=== PATIENT | male | born 1965 | race Caucasian/White ===

== ENCOUNTER → 2019-06-12 09:10 | Outpatient (BNVA) | payer MEDICARE, MEDICAID, SELFPAY | PROVIDERS: Family Provider Family Medicine; PCP Family Medicine; Visit Provider Internal Medicine Cardiovascular Disease | DX: E11.9 Type 2 diabetes mellitus without complications (principal) | CPT/HCPCS: 83036 ==

== ENCOUNTER → 2020-09-20 09:03 | Outpatient (BNVA) | payer MEDICARE, MEDICAID, SELFPAY | PROVIDERS: Family Provider Family Medicine; PCP Family Medicine; Visit Provider Nurse Practitioner Family | DX: E11.9 Type 2 diabetes mellitus without complications (principal); I10 Essential (primary) hypertension; Z68.25 Body mass index [BMI] 25.0-25.9, adult | CPT/HCPCS: 80053; 80061; 82043; 83036; 85025 ==

== ENCOUNTER → 2021-03-23 16:57 | Outpatient (BNVA) | payer MEDICARE, MEDICAID, SELFPAY | PROVIDERS: Family Provider Family Medicine; PCP Family Medicine; Visit Provider Nurse Practitioner Family | DX: E78.2 Mixed hyperlipidemia (principal); E11.9 Type 2 diabetes mellitus without complications; I10 Essential (primary) hypertension | CPT/HCPCS: 80053; 80061; 83036 ==

== ENCOUNTER → 2021-06-21 09:35 | Outpatient (BNVA) | payer MEDICARE, MEDICAID, SELFPAY | PROVIDERS: Family Provider Family Medicine; PCP Family Medicine; Visit Provider Nurse Practitioner Family | DX: E11.9 Type 2 diabetes mellitus without complications (principal); H91.3 Deaf nonspeaking, not elsewhere classified; I10 Essential (primary) hypertension; Z68.24 Body mass index [BMI] 24.0-24.9, adult | CPT/HCPCS: 83036 ==

== ENCOUNTER → 2021-10-03 08:44 | Outpatient (BNVA) | payer MEDICARE, MEDICAID, SELFPAY | PROVIDERS: Family Provider Family Medicine; PCP Family Medicine; Visit Provider Nurse Practitioner Family | DX: I10 Essential (primary) hypertension (principal); E11.9 Type 2 diabetes mellitus without complications | CPT/HCPCS: 80053; 80061; 83036; 84443 ==

== ENCOUNTER 2023-07-14 21:14 | Inpatient (IN) | payer MEDICARE, MEDICAID, SELFPAY ==
[2023-07-14 21:16] VITALS: BP 110/80; PULSE 111; RESP 16; TEMP 36.4; O2SAT 90
--- NOTE | 2023-07-14 21:32 | XRR_ITS ---
PROCEDURE INFORMATION: Exam: XR Chest Exam date and time: 07/14/2023 9:43 PM Age: 58 years old Clinical indication: Pain; Chest pressure; Additional info: Cp TECHNIQUE: Imaging protocol: Radiologic exam of the chest. Views: 1 view. COMPARISON: l spine FINDINGS: Lungs: No focal consolidation or other acute appearing pulmonary opacity. Pleural spaces: No pleural effusion or pneumothorax noted. Heart/Mediastinum: There is no cardiomegaly. Bones/joints: No acute osseous abnormality. Intraperitoneal space: There is no free intraperitoneal air. XR/XR chest 1V portable [id number] IMPRESSION: No acute cardiopulmonary disease.
--- NOTE | 2023-07-14 21:32 | ECG_ITS ---
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 Measurements Intervals [place] Rate: 111 P: 59 MI: 142 QRS: -78 QRSD: 117 T: 82 QT: 350 QTc: 476 Interpretive Statements SINUS TACHYCARDIA No previous ECG available for comparison Electronically Signed On 07-15-2023 13:15:46 CDT by Rich Jenkins M.D. [id number] f
[2023-07-14 21:58] LABS: Basophils # 0.1 10^3/uL (0.0-0.1); Basophils % 0.6 %; Eosinophils % 0.1 %; Hematocrit 52.1 % (37-53); Lymphocytes # 1.2 10^3/uL (0.8-4.8); Lymphocytes % 11.4 %; Mean Corpuscular HGB Conc 36.3 g/dL (30-55); Mean Corpuscular Hemoglobin 35.9 pg (27-33); Mean Corpuscular Volume 98.9 fl (82-101); Mean Platelet Volume 8.8 fL (7.4-10.4); Monocytes # 0.7 10^3/uL (0.2-0.9); Monocytes % 6.3 %; Neutrophils # 8.52 10^3/uL (1.8-7.7); Neutrophils % 81.2 %; Nucleated Red Blood Cells % 0 %; Platelet Count 264 10^3/cmm (157-399); Red Blood Count 5.27 10^6/uL (3.85-5.65); Red Cell Distribution Width 12.6 % (12.1-15.1); White Blood Count 10.49 10^3/uL (3.29-11.43)
[2023-07-14 22:15] VITALS: BP 105/81; PULSE 96; RESP 15; O2SAT 95
[2023-07-14 22:19] LABS: Troponin(5th) Baseline 62 ng/L (0-15)
[2023-07-14] MEDS: ondansetron 2 mg/ML SDV 2 mL 4 MG IVP (22:20)
[2023-07-14 22:21] VITALS: RESP 18; O2SAT 95
[2023-07-14] MEDS: morphine 4 mg/mL SDV 1 mL IVP (22:21)
[2023-07-14 22:26] LABS: Alanine Aminotransferase 48 U/L (0-41); Albumin Level 4.3 g/dL (3.5-5.2); Alcohol Level 107 mg/dL (0-10); Alkaline Phosphatase 66 U/L (40-130); Aspartate Amino Transferase 48 U/L (0-40); Blood Urea Nitrogen 11 mg/dL (6-20); Carbon Dioxide 20 mmol/L (22-29); Chloride 95 mmol/L (98-107); Creatine Phosphokinase 216 U/L (39-308); Globulin 3.5 g/dL (1.3-4.6); Glomerular Filtration Rate 86.4 mL/min (90-130); Glucose 155 mg/dL (65-115); Lipase 45 U/L (13-60); NT Pro B Type Natriuretic Pept 250 pg/mL (0-125); Osmolality Calculated 277 mOsm/kg (285-295); Sodium 132 mmol/L (136-145); Total Bilirubin 0.5 mg/dL (0.15-1.2); Total Protein 7.8 g/dL (6.6-8.7)
[2023-07-14 22:29] LABS: Anion Gap 21.1 (5-19); Potassium 4.1 mmol/L (3.5-5.1)
[2023-07-14 22:30] VITALS: BP 102/75; BP 109/80; PULSE 108; PULSE 93; RESP 18; O2SAT 93; O2SAT 94
[2023-07-14 22:41] VITALS: BP 109/80; PULSE 106; RESP 15; O2SAT 94
--- NOTE | 2023-07-14 22:50 | ED_ITS ---
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 He presents with chest discomfort. He also has COPD, and has been coughing recently, although not necessarily more. No fever. He is short of breath. Communication and history are otherwise difficult due to the patient's condition. He does not wear oxygen at home. Pain was not improved with nitroglycerin en route. Family tells me that the patient has stopped his medications in the last 6 months. He drinks 6 beers or so a day. Associated symptoms: Deny abdominal pain, fever(s), nausea, palpitations or vomiting Review of Systems 2 Const: Denies: fever(s), chills or body aches Eyes: Denies: change in vision Card: Denies: palpitations Resp: Denies: wheezing GI: Denies: abdominal pain, nausea, vomiting, diarrhea or hematochezia Skin/Breast: Denies: rash Neuro: Denies: headache(s), weakness in extremities, dizziness or confusion PFS ED 2 PFSH: Medical History (Updated 07/15/23 @ 01:14 by Emiliano Clarke DO) Carotid stenosis History of heart attack Enrolled in chronic care management COPD (chronic obstructive pulmonary disease) Peptic ulcer disease Hypertension Hyperlipidemia Atherosclerosis of [place] coronary artery of [place] heart with unstable angina pectoris Diabetes Esophageal dysfunction ASHD (arteriosclerotic heart disease) Surgical History Hx of neck surgery Social History Smoking and tobacco/nicotine status: former use of tobacco/nicotine Quit status (tobacco/nicotine): has quit using Year quit tobacco: 2014 Alcohol intake: former Physical Exam 2 Const: COMMON NORMALS: no acute distress GENERAL APPEARANCE: cooperative; not ill appearing and not frail appearing HENMT: COMMON NORMALS: normocephalic, atraumatic and Normal external nose present HEAD & SCALP: normocephalic and atraumatic FACE & SINUS: normal facial exam and face symmetric NOSE: Normal external nose present Eye: COMMON NORMALS: Equal, round and reactive pupils present and EOMs intact bilaterally PUPIL: Yes Equal, round and reactive pupils present Neck/C-Spine: GENERAL: Yes trachea midline Chest: CHEST: Yes Symmetrical chest wall rise Resp: COMMON NORMALS: normal respiratory effort, No retractions, No use of accessory muscles and clear to auscultation bilaterally AUSCULTATION: clear to auscultation bilaterally Cardio: COMMON NORMALS: regular rhythm RATE: tachycardic RHYTHM: regular rhythm GI: COMMON NORMALS: Normal to inspection, nondistended, normoactive bowel sounds present Extremity: COMMON NORMALS: no pedal edema Neuro: ANIBAL COMA SCALE: document GCS findings Anibal coma scale eye opening: Spontaneous Anibal coma scale verbal response: Orientated [place] coma scale motor response: [place] commands Anibal coma scale total score: 15 S ENSORY EXAM: Yes extremities (intact) Psych: COMMON NORMALS: speech normal SPEECH: Yes normal speech Skin: COMMON NORMALS: no rashes or lesions noted GENERAL SKIN EXAM: no rashes or lesions noted Course 2 Vital Signs: Vital signs: Vital Signs Temperature 97.5 F L 07/14/23 21:16 Pulse Rate 87 07/15/23 00:35 Respiratory Rate 15 07/14/23 22:41 Blood Pressure 123/80 07/15/23 00:35 Pulse Oximetry 95 07/15/23 00:35 Oxygen Delivery Me thod Nasal Cannula 07/15/23 00:35 Oxygen Flow Rate 2 07/15/23 00:35 MDM - Chest Pain Medical Decision Making EKG shows tachycardia without acute ST wave change. Hemoglobin is 19. Bicarbonate is 20. Blood sugar is 155 sodium 132. Chest x-ray Shows no acute change. First troponin however is 62 with a 2-hour delta of 30. No acute ST wave changes on EKG. Patient was tachycardic initially, which is improved to some degree. D-dimer is negative. He is given Lovenox here after morphine and Zofran. He received nitroglycerin and aspirin in the ambulance with minimal improvement. Pain is improved currently. He will go to [facility]. Spoke with hospitalist who agrees and has seen the patient. Lab Data 07/14/23 21:43 07/14/23 21:43 Radiology Impressions Chest X-Ray 07/14/23 21:32 IMPRESSION: No acute cardiopulmonary disease. Laboratory Results WBC 10.49 10^3/uL (3.29-11.43) 07/14/23 21:43 RBC 5.27 10^6/uL (3.85-5.65) 07/14/23 21:43 Hgb 18.90 g/dL (11.27-16.99) H 07/14/23 21:43 Hct 52.1 % (37-53) 07/14/23 21:43 MCV 98.9 fl (82-101) 07/14/23 21:43 MCH 35.9 pg (27-33) H 07/14/23 21:43 MCHC 36.3 g/dL (30-55) 07/14/23 21:43 RDW 12.6 % (12.1-15.1) 07/14/23 21:43 Plt Count 264 10^3/cmm (157-399) 07/14/23 21:43 MPV 8.8 fL (7.4-10.4) 07/14/23 21:43 Neut % (Auto) 81.2 % 07/14/23 21:43 Lymph % (Auto) 11.4 % 07/14/23 21:43 Desha % (Auto) 6.3 % 07/14/23 21:43 Eos % (Auto) 0.1 % 07/14/23 21:43 Baso % (Auto) 0.6 % 07/14/23 21:43 Neut # (Auto) 8.52 10^3/uL (1.8-7.7) H 07/14/23 21:43 Lymph # (Auto) 1.2 10^3/uL (0.8-4.8) 07/14/23 21:43 Desha # (Auto) 0.7 10^3/uL (0.2-0.9) 07/14/23 21:43 Eos # (Auto) 0.0 10^3/uL (0.0-0.8) 07/14/23 21:43 Baso # (Auto) 0.1 10^3/uL (0.0-0.1) 07/14/23 21:43 Nucleated RBC % (auto) 0 % 07/14/23 21:43 Nucleated RBCs # 0.0 /100WBC 07/14/23 21:43 D-Dimer 0.48 ug/mLFEU (0-0.59) 07/14/23 21:50 Sodium 132 mmol/L (136-145) L 07/14/23 21:43 Potassium 4.1 mmol/L (3.5-5.1) 07/14/23 21:43 Chloride 95 mmol/L (98-107) L 07/14/23 21:43 Carbon Dioxide 20 mmol/L (22-29) L 07/14/23 21:43 Anion Gap 21.1 (5-19) H 07/14/23 21:43 BUN 11 mg/dL (6-20) 07/14/23 21:43 Creatinine 0.9 mg/dL (0.7-1.2) 07/14/23 21:43 GFR Calculation 86.4 mL/min (90-130) L 07/14/23 21:43 Glucose 155 mg/dL (65-115) H 07/14/23 21:43 Calculated Osmolality 277 mOsm/kg (285-295) L 07/14/23 21:43 Calcium 9.0 mg/dL (8.5-10.5) 07/14/23 21:43 Total Bilirubin 0.5 mg/dL (0.15-1.2) 07/14/23 21:43 AST 48 U/L (0-40) H 07/14/23 21:43 ALT 48 U/L (0-41) H 07/14/23 21:43 Alkaline Phosphatase 66 U/L (40-130) 07/14/23 21:43 Creatine Kinase 216 U/L (39-308) 07/14/23 21:43 Troponin T Baseline 62 ng/L (0-15) H 07/14/23 21:43 Troponin T 120 Minute 92.33 ng/L (0-15) H 07/14/23 23:29 Delta Troponin T 30.33 ABS# (0-10) H* 07/14/23 23:29 NT-Pro-B Natriuret Pep 250 pg/mL (0-125) H 07/14/23 21:43 Total Protein 7.8 g/dL (6.6-8.7) 07/14/23 21:43 Albumin 4.3 g/dL (3.5-5.2) 07/14/23 21:43 Globulin 3.5 g/dL (1.3-4.6) 07/14/23 21:43 Lipase 45 U/L (13-60) 07/14/23 21:43 Ethyl Alcohol 107 mg/dL (0-10) H 07/14/23 21:43 All radiology interpretation(s) finalized by discharge Discharge Plan Discharge Patient Disposition: Admitted As Inpatient Clinical Impression: Non-ST elevated myocardial infarction (non-STEMI) Condition: Fair Prescriptions: No Action metformin 1,000 mg tablet 1,000 mg PO BID Qty: 60 2RF Rx Instructions: start with half a tablet twice a day for one week then increase to one tablet twice a day. aspirin [Adult Aspirin Regimen] 81 mg tablet,delayed release (DR/EC) 81 mg PO DAILY omega-3 fatty acids [Fish Oil Concentrate] 1,000 mg capsule 1,000 mg PO DAILY albuterol sulfate [ProAir HFA] 90 mcg/actuation HFA aerosol inhaler 2 puff INHALATION Q6H PRN pantoprazole 40 mg tablet,delayed release (DR/EC) 40 mg PO BID (DME) blood-glucose meter Kit See Rx Instructions .Route Qty: 1 0RF Rx Instructions: As directed isosorbide mononitrate 30 mg tablet extended release 24 hr 30 mg PO DAILY Qty: 90 3RF atorvastatin 80 mg tablet 80 mg PO DAILY Qty: 90 3RF clopidogrel 75 mg tablet 75 mg PO DAILY Qty: 90 2RF benazepril 10 mg tablet 10 mg PO DAILY Qty: 90 2RF Farxiga 10 mg tablet 10 mg PO QAM Qty: 90 3RF Symbicort 160-4.5 mcg/actuation HFA aerosol inhaler 2 puff INHALATION BID Qty: 10.2 11RF ezetimibe 10 mg tablet 10 mg PO DAILY Qty: 90 3RF Referrals: Minh Fay DO [Primary Care Provider] - Patient Instructions: Opioid Safety, Pain Management Coding Level of Care Code ED Tours Hostess for Roby Jerome
[2023-07-14 23:07] LABS: D Dimer 0.48 ug/mLFEU (0-0.59)
[2023-07-14] MEDS: sodium chloride 0.9% 1,000 ML 999 ML IV (23:26)
[2023-07-14 23:45] VITALS: BP 117/73; PULSE 88; RESP 16; O2SAT 94
[2023-07-14 23:58] LABS: Troponin 5 2HR 92.33 ng/L (0-15)
[2023-07-15] VITALS (62 sets, daily range): BP systolic 95–195; BP diastolic 77–124; PULSE 79–141; RESP 12–31; TEMP 36.2–36.5; O2SAT 89–99
[2023-07-15 00:01] LABS: Troponin 5 2HR Delta 30.33 ABS# (0-10)
[2023-07-15] MEDS: enoxaparin 80 mg/0.8 mL Syringe SUBCUT (00:33)
--- NOTE | 2023-07-15 01:14 | USCV_ITS ---
Dalton Lo Age: 58 Gender: M : 1965 Exam Date: 07/15/2023 07:11 Ordering Phys: Andrea Geiger MD Technologist: Exam Location: [facility] [place] Indication: CP BP: 112 / 88 HR: 102 Rhythm: Sinus Technical Quality: Good MEASUREMENTS (Male / Female) Normal Values 2D ECHO LV Diastolic Diameter PLAX 2.9 cm 4.2 - 5.9 / 3.9 - 5.3 cm IVS Diastolic Thickness 1.4 cm 0.6 - 1.0 / 0.6 - 0.9 cm IVS Systolic Thickness 1.5 cm LVPW Diastolic Thickness 1.4 cm 0.6 - 1.0 / 0.6 - 0.9 cm LVPW Systolic Thickness 1.6 cm LVOT Diameter 2.1 cm LV Ejection Fraction 2D Teich 63.1 % LV Ejection Fraction MOD 2C 38.7 % LV Ejection Fraction 2C AL 39.8 % LA Diameter 3.1 cm RA Systolic Volume 4C AL 19.7 ml RA Systolic Volume 4C MOD 19.2 ml Aorta at Sinotubular Diameter 2.9 cm IVC Diameter 1.4 cm M-MODE LA Ao Ratio MM 1.1 AV Cusp Separation MM 2.3 cm DOPPLER AV Peak Velocity 120.0 cm/s LVOT Peak Velocity 90.0 cm/s AV Area Cont Eq vti 3.7 cm squared AV Area Cont Eq pk 2.7 cm squared MV Peak Velocity 129.0 cm/s MV Area PHT 9.3 cm squared Mitral E to A Ratio 0.4 TR Peak Velocity 157.0 cm/s TR Peak Gradient 9.9 mmHg TV Peak E Velocity 74.0 cm/s Right Atrial Pressure 3.0 mmHg Pulmonary Artery Systolic Pressu 12.9 mmHg FINDINGS Left Ventricle Mildly dilated left-ventricule with diffuse hypokinesia, more so of the apex. LV ejection fraction of around 40%.Grade I/IV diastolic dysfunction (abnormal relaxation filling pattern), normal to mildly elevated filling pressures. Right Ventricle The right ventricle is normal in size and function. Right Atrium The right atrium is normal in size. Left Atrium The left atrium is normal in size. Mitral Valve Thickened mitral valve. Trace mitral valve regurgitation. Aortic Valve Thickened aortic valve. Tricuspid Valve No gross abnormalities noted Pulmonic Valve Pulmonic valve not well visualized. Pericardium Normal pericardium without effusion. Aorta Normal ascending aorta dimension. IVC The inferior vena cava appears normal. CONCLUSIONS Mildly dilated left-ventricule with diffuse hypokinesia, more so of the apex. LV ejection fraction of around 40%.Grade I/IV diastolic dysfunction (abnormal relaxation filling pattern), normal to mildly elevated filling pressures. Thickened mitral valve. Trace mitral valve regurgitation. No intracardiac masses No pericardial effusion No similar previous studies are available for comparison Dr Allison Gonzalez MD [facility] (Electronically Signed) Final Date: 15 July 2023 12:33 S
--- NOTE | 2023-07-15 01:16 | P.HP_ITS ---
Providers/Chief Complaint 2 Primary Care Provider: Minh Fay DO Chief Complaint: SOB History of Present Illness Dalton Lo is a 58 year old male with a past medical history of CAD, hypertension, type 2 diabetes mellitus, history of being deaf/mute, who according to family stopped taking his medications for the last few months, presents to [facility] for chest pain. Patient is nonverbal, but he has been indicating to family members at he has been having chest discomfort, and that he is feels short of breath, no falls, no injuries, no recent travel, denies any calf pain, no calf swelling, currently he is chest pain-free, patient's family tells me that he he can walk, but primarily stays in a chair or bed all day, he does not do a lot of activities Review of Systems 2 Card: Reports: chest pain Resp: Reports: dyspnea GI: Denies: abdominal pain Medications/Allergies Home Medications Medication Instructions Recorded Confirmed Last Taken Type albuterol sulfate 90 mcg/actuation 2 puff inhalation Q6H PRN 05/18/19 09/21/21 Unknown History aerosol inhaler (ProAir HFA) aspirin 81 mg tablet,delayed 81 mg PO DAILY 05/18/19 09/21/21 Unknown History release (Adult Aspirin Regimen) omega-3 fatty acids 1,000 mg 1,000 mg PO DAILY 05/18/19 09/21/21 Unknown History capsule (Fish Oil Concentrate) pantoprazole 40 mg tablet,delayed 40 mg PO BID 05/18/19 09/21/21 Unknown History release atorvastatin 80 mg tablet 80 mg PO DAILY #90 tabs 06/08/20 09/21/21 Unknown Rx isosorbide mononitrate 30 mg 30 mg PO DAILY #90 tabs 06/08/20 09/21/21 Unknown Rx tablet,extended release 24 hr benazepril 10 mg tablet 10 mg PO DAILY #90 tabs 07/25/20 09/21/21 Unknown Rx clopidogrel 75 mg tablet 75 mg PO DAILY #90 tabs 07/25/20 09/21/21 Unknown Rx dapagliflozin propanediol 10 mg 10 mg PO QAM #90 tabs 09/21/20 09/21/21 Unknown Rx tablet (Farxiga) budesonide-formoterol HFA 160 2 puff inhalation BID #10.2 grams 12/05/20 09/21/21 Unknown Rx mcg-4.5 mcg/actuation aerosol inhaler (Symbicort) ezetimibe 10 mg tablet 10 mg PO DAILY #90 tabs 12/19/20 09/21/21 Unknown Rx metformin 1,000 mg tablet 1,000 mg PO BID #60 tabs 03/23/21 09/21/21 Unknown Rx blood-glucose meter #1 ea 06/21/21 09/21/21 Unknown Rx Allergies Allergy/AdvReac Type Severity Reaction Status Date / Time No Known Allergies Allergy Verified 10/25/21 07:54 PFSH Acute 2 PFSH: Medical History (Updated 07/15/23 @ 01:19 by Andrea Geiger MD) Carotid stenosis History of heart attack Enrolled in chronic care management COPD (chronic obstructive pulmonary disease) Peptic ulcer disease Hypertension Hyperlipidemia Atherosclerosis of [place] coronary artery of [place] heart with unstable angina pectoris Diabetes Esophageal dysfunction ASHD (arteriosclerotic heart disease) Surgical History Hx of neck surgery Social History Smoking and tobacco/nicotine status: former use of tobacco/nicotine Quit status (tobacco/nicotine): has quit using Year quit tobacco: 2013 Alcohol intake: former Vitals/I&O/Wt Last Vital Signs Temp 97.5 F L 07/14/23 21:16 Pulse 87 07/15/23 00:35 Resp 15 07/14/23 22:41 BP 123/80 07/15/23 00:35 Pulse Ox 95 07/15/23 00:35 O2 Del Method Nasal Cannula 07/15/23 00:35 O2 Flow Rate 2 07/15/23 00:35 07/14/23 07/14/23 07/15/23 14:59 22:59 06:59 Intake Total 1000 / 1000 Balance 1000 / 1000 Physical Exam 2 Const: COMMON NORMALS: no acute distress ORIENTATION/CONSCIOUSNESS: Yes awake and Yes oriented to person HENMT: COMMON NORMALS: normocephalic HEAD & SCALP: normocephalic Eye: COMMON NORMALS: Equal, round and reactive pupils present Neck/C-Spine: COMMON NORMALS: no JVD Resp: COMMON NORMALS: normal respiratory effort, No retractions, No use of accessory muscles and clear to auscultation bilaterally AUSCULTATION: clear to auscultation bilaterally Cardio: COMMON NORMALS: regular rate, regular rhythm, S1 normal heart sound present and S2 normal heart sound present RATE: regular rate RHYTHM: r egular rhythm HEART SOUNDS: S1 normal heart sound present and S2 normal heart sound present GI: COMMON NORMALS: Normal to inspection, nondistended, normoactive bowel sounds present, Soft to palpation and non-tender Extremity: COMMON NORMALS: no calf tenderness and no pedal edema Neuro: OTHER: Difficult to do neurologic testing as patient is deaf, but moves both upper and lower extremities Data 07/14/23 21:43 07/14/23 21:43 A&P Assessment and plan (1) Non-ST elevated myocardial infarction (non-STEMI): (2) Chest pain: Plan NSTEMI/chest pain ? 120-minute troponin 92.33, delta 30.33, no acute ST-T wave changes on EKG no active chest pain ? Plan ? Serial EKGs, serial troponins, telemetry monitoring ? Aspirin, statin, Plavix, ? Urine toxicology screen ? Cardiac echo, ? N.p.o., ? Cardiac stress test, ? Therapeutic Lovenox ? Full code ? Lovenox for DVT prophylaxis ? Type 2 diabetes mellitus, low-dose sliding scale ? Alcohol level is 107 monitor for withdrawals Attestations 2 Medical Necessity Statement*: Patient requires hospitalization, inpatient, greater than 2 midnights, for NSTEMI, chest pain Diagnoses Non-ST elevated myocardial infarction (non-STEMI) I21.4 Chest pain R07.9
[2023-07-15 01:39] LABS: Lactic Sepsis W/Reflex 2.7 mmol/L (0.5-2.2)
[2023-07-15 03:14] LABS: Reflex Lactate Order REFLEX LACTIC ORDERD
--- NOTE | 2023-07-15 03:32 | ECG_ITS ---
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 Measurements Intervals [place] Rate: 109 P: 62 NM: 154 QRS: -76 QRSD: 114 T: 91 QT: 326 QTc: 440 Interpretive Statements SINUS TACHYCARDIA POSSIBLE LEFT ATRIAL ENLARGEMENT [-0.1mV P-WAVE IN V1/V2] PATTERN CONSISTENT WITH PULMONARY DISEASE RIGHT BUNDLE BRANCH BLOCK [120+ ms QRS DURATION, UPRIGHT V1, 40+ ms S IN I/aVL/V4/V5/V6] LEFT ANTERIOR FASCICULAR BLOCK [QRS AXIS <= -45, QR IN I, RS IN II] MODERATE T-WAVE ABNORMALITY, CONSIDER LATERAL ISCHEMIA [-0.1+ mV T-WAVE IN I/aVL/V5/V6] Compared to ECG 07/14/2023 21:17:39 Right bundle-branch block now present Left anterior fascicular block now present T-wave abnormality now present Possible ischemia now present Ventricular-paced complex(es) or rhythm no longer present Electronically Signed On 07-15-2023 13:20:51 CDT by Rich Jenkins M.D. [id number]
[2023-07-15] MEDS: morphine 4 mg/mL SDV 1 mL 2 MG IVP ×3 (03:37→20:27)
[2023-07-15 03:41] LABS: Estmated Average Glucose 126
[2023-07-15 03:45] LABS: Chol HDL Ratio 6.93 mg/dL (1.0-5.00); Cholesterol 284 mg/dL (0-200); HDL Cholesterol 41 mg/dL (60-100); LDL Cholesterol Calculated 188 mg/dL (50-129); LDL HDL Ratio 4.59 RATIO (0.00-3.22); Thyroid Stimulating Hormone 3.85 uIU/mL (0.27-4.20); Triglycerides 273 mg/dL (0-150)
--- NOTE | 2023-07-15 03:57 | PC.NURSE ---
Addendum entered by Hailee Mcneill RN 07/15/23 04:42: Also unable to complete med rec, verify pharmacy, and verify allergies. Addendum entered by Hailee Mcnelil RN 07/15/23 04:30: Per report from ED nurse, patient stopped taking home medications. Addendum entered by Hailee Mcneill RN 07/15/23 04:22: Unable to complete admission assessment, suicide risk assessment, immunization assessment, and social drivers of health screening due to being unable to communicate with patient. No family at bedside. Addendum entered by Hailee Mcneill RN 07/15/23 04:08: Unable to assess orientation status. Original Note: Patient is deaf. Per ED nurse, patient was unable to communicate via sign language. This nurse wrote on paper to have patient read a question, and patient shrugged his shoulders. Communication with patient is difficult. Face scale on care board using to assess pain level. Patient holding hand to chest, very diaphoretic, and blood pressure is 193/121. Using face scale, patient's pain is a 6/10. PRN Morphine given. Dr. Geiger called and ordered EKG and PRN Hydralazine.
[2023-07-15] MEDS: hyDRALAzine 20 mg/mL INJ 1 mL 10 MG IVP (04:02)
[2023-07-15 04:12] LABS: Add Urine Microscopic? NO; Charge for UA Resulting for Rev
[2023-07-15 04:14] LABS: Bilirubin Urine Neg (Negative); Blood Urine Neg (Negative); Glucose Urine UA Norm (Normal); Ketones Urine Negative (Negative); Leukocyte Esterase Urine Negative (Negative); Nitrate Urine Negative (Negative); Protein Urine Neg (Negative); Urine Appearance Clear (CLEAR); Urine Color Light yellow (Yellow); Urobilinogen Urine Neg (Negative); pH Urine 5 (5-7)
[2023-07-15 04:23] LABS: Amphetamines Screen Urine Negative (Negative); Barbiturates Screen Urine Negative (Negative); Benzodiazepines Screen Urine Negative (Negative); Cocaine Screen Urine Negative (Negative); Opiate Screen Urine Positive (Negative); PCP Screen Urine Negative (Negative); THC Screen Urine Positive (Negative)
--- NOTE | 2023-07-15 04:46 | PC.NURSE ---
Addendum entered by Hailee Mcneill RN 07/15/23 05:12: Dr. Geiger ordered to cancel stress test and give 9 am Plavix and aspirin now. Original Note: Patient no longer diaphoretic. Blood pressure now 130/94. Patient rates pain 3/10 on face scale. 6-hour troponin of 126 [address] delta of [address]. Dr[address] Geiger notified.
[2023-07-15 04:47] LABS: Lactic Acid level (Lactate) 1.7 mmol/L (0.5-2.2)
--- NOTE | 2023-07-15 04:53 | PC.RESP ---
EKG ORDERED 07/14/2023 @ 2332. PATIENT IN ER, EKG NOT COMPLETED PRIOR TO TRANSFERRING TO ICU
[2023-07-15] MEDS: aspirin 81 mg EC Tablet PO (05:38)
[2023-07-15] MEDS: clopidogrel 75 mg Tablet PO (05:38)
[2023-07-15] MEDS: nitroglycerin drip 50 MG/250 ML PREMIX IV (05:38)
[2023-07-15] MEDS: carvedilol 3.125 mg Tablet PO ×2 (05:38→17:33)
--- NOTE | 2023-07-15 05:50 | ECG_ITS ---
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 Measurements Intervals [place] Rate: 107 P: 61 DC: 144 QRS: -78 QRSD: 116 T: 123 QT: 353 QTc: 473 Interpretive Statements SINUS TACHYCARDIA POSSIBLE LEFT ATRIAL ENLARGEMENT [-0.1mV P-WAVE IN V1/V2] PATTERN CONSISTENT WITH PULMONARY DISEASE RIGHT BUNDLE BRANCH BLOCK [120+ ms QRS DURATION, UPRIGHT V1, 40+ ms S IN I/aVL/V4/V5/V6] LEFT ANTERIOR FASCICULAR BLOCK [QRS AXIS <= -45, QR IN I, RS IN II] MODERATE T-WAVE ABNORMALITY, CONSIDER ANTEROLATERAL ISCHEMIA [-0.1+ mV T-WAVE IN V3-V6] Compared to ECG 07/15/2023 03:54:22 No significant changes Electronically Signed On 07-15-2023 13:14:16 CDT by Rich Jenkins M.D. [id number]
--- NOTE | 2023-07-15 06:05 | PC.NURSE ---
Addendum entered by Hailee Mcneill RN 07/15/23 06:22: Ordered to give another dose of IV Morphine now. Original Note: Patient now diaphoretic again, rocking back and forth in bed, and clenching chest. Nitro drip titrated up to 10 mcg/min. Dr. Geiger notified.
[2023-07-15] MEDS: ondansetron 2 mg/ML SDV 2 mL 4 MG IVP (06:17)
--- NOTE | 2023-07-15 06:25 | PC.NURSE ---
Verified with Dr. Geiger to give both orders of PO Plavix to total 600 mg.
[2023-07-15] MEDS: clopidogrel 300 mg Tablet PO (06:27)
[2023-07-15] MEDS: clopidogrel 75 mg Tablet 225 MG PO (06:28)
--- NOTE | 2023-07-15 06:33 | PC.NURSE ---
Patient vomited approximately 06:30.
[2023-07-15 06:37] LABS: Troponin(5th) Baseline 116 ng/L (0-15)
--- NOTE | 2023-07-15 07:22 | XACV_ITS ---
Exam Room: [facility] Ht: 165 cm Wt: 68 kg BSA: 1.78 m2 Gender: Male : 1965 Any Known Allergies: No known allergies Exam Priority: Routine Procedure(s): Procedure Description: Diagnostic procedure Procedure Description: PCI procedure Procedure Description: Coronary IVUS Procedure Description: Drug Eluting Coronary Stent Procedure Description: PTCA Procedure Description: Miscellaneous Procedure Description: ACT Procedure Description: Coronary Angiography Procedure Description: Intravascular lithotripsy Diagnostic Cath Status: Urgent Diagnostic Findings * Left Main: severe 70% stenosis, DANIEL: 3 flow. * Proximal to mid left circumflex artery has severe 80 to 90% stenosis. It starts from prior stent still bifurcation of OM and distal left circumflex artery.. * Right Coronary Artery has moderate luminal irregularities. * Mid Left Anterior Descending: critical 95% stenosis, DANIEL: 3 flow. * Coronary angiography shows right dominance. PCI Status: Urgent PCI Indication: NSTE - ACS Interventional Findings * PROCEDURE DETAIL: After diagnostic images were obtained, I had the heart team discussion with CT surgery team at [facility] (Dr De La Fuente) and shared decision was made stenting was more appropriate option for the patient given his lack of physical activity, COPD, very limited communication. We engaged left main artery with XB 3.0 guide catheter. IV heparin was administered to maintain anticoagulation. We used 0.014 run-through guidewire to cross mid LAD stenosis and was put in distal vessel. We predilated stenosis with 2.5 x 12 mm semicompliant balloon. This was followed with placement of 2.7 x 15 mm resolute [place] drug-eluting stent. Distal to stent, there was another significant stenosis now more prominent. We covered it with 2.5 x 26 mm resolute [place] drug-eluting stent. At this time LAD angiogram showed excellent stent expansion. We then turned our attention to left circumflex artery. It was very difficult to wire it. We were able to wire it eventually and dilated with 2.5 x 12 mm semicompliant balloon. However could not advance stents. We then switched access to femoral artery. We used XB 3.5 guide catheter. Super cross microcatheter was used to advance the wire into the left circumflex artery. From initial ballooning of left circumflex artery, mid to distal vessel had a dissection. It was nonflow limiting. However patient was having chest discomfort. Anesthesia team was called who sedated him. We then advanced 2.75 x 30 mm and resolute [place] drug-eluting stent from proximal left circumflex artery into OM1. We then proceeded with PCI of left main artery. IVUS was used to size the vessel. Given calcification, we used 4.0 x 12 mm intravascular lithotripsy shockwave balloon and delivered 20 pulses. Patient's blood pressure started to drop. We then proceeded with predilation with 4.0 x 12 mm NC balloon. We then placed 4.0 x 15 mm resolute Adrián drug-eluting stent from left main artery into LAD. At this time final angiogram was performed that showed excellent stent expansion, no residual stenosis and DANIEL-3 flow. Guidewire and guide catheter were removed. 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 * Mid Circumflex: 90% stenosis treated with a AB TREK 2.50X12 RX BALLOON, and MDTiffanie Garcia ADRIÁN 2.75X30 HANNA. 0% residual stenosis, DANIEL: 3 flow. * Left Main: 70% stenosis treated with a Shockwave 4.0 X 12mm IVL Balloon, MDTiffanie SUGGS EUPHORA RX [id number] BALLOON, and SHAHID Garcia ADRIÁN 4.0X15 HANNA. 0% residual stenosis, DANIEL: 3 flow. * Mid Left Anterior Descendin% stenosis treated with a AB TREK 2.50X12 RX BALLOON, SHAHID Garcia ADRIÁN 2.75X15 HANNA, and SHAHID Garcia ADRIÁN 2.5X26 HANNA. 0% residual stenosis, DANIEL: 3 flow. Conclusions 1. Severe multivessel CAD. 2. After discussion with CT surgery team 3. , shared decision made to proceed with multivessel PCI. 4. Successful revascularization of LAD with 2 stents. Successful revascularization of left main artery. Intravascular lithotripsy shockwave balloon and 1 stent. Successful revascularization of proximal to mid left circumflex artery with 1 stent.. 5. Left Main was treated with a Balloon, Balloon, and Drug Eluting Stent. 6. Mid Left Anterior Descending was treated with a Balloon, Drug Eluting Stent, and Drug Eluting Stent. 7. Mid Circumflex was treated with a Balloon, and Drug Eluting Stent. Recommendations * Dual antiplatelet therapy with aspirin Plavix for at least 1 year. * High intensity statin therapy. * Transfer back to ICU. Close monitoring. Interventional RX Recommendation: PCI w/o planned CABG Diagnostic RX Recommendation: PCI w/o planned CABG Anticoagulation: Heparin Pressures Phase:Rest AO : 127 / 81 ( 98 ) @ 9:10:00 AM 101 / 58 ( 78 ) @ 9:31:00 AM 118 / 71 ( 92 ) @ 9:37:00 AM 145 / 102 ( 123 ) @ 9:42:00 AM 150 / 102 ( 125 ) @ 10:04:00 AM 133 / 101 ( 118 ) @ 10:07:00 AM 177 / 109 ( 138 ) @ 10:30:00 AM 184 / 118 ( 144 ) @ 10:58:00 AM 138 / 106 ( 120 ) @ 11:09:00 AM 126 / 91 ( 106 ) @ 11:27:00 AM 105 / 89 ( 94 ) @ 11:33:00 AM 148 / 90 ( 112 ) @ 11:52:00 AM 81 / 66 ( 73 ) @ 12:13:00 PM 71 / 61 ( 66 ) @ 12:16:00 PM 161 / 43 ( 56 ) @ 12:19:00 PM 102 / 81 ( 92 ) @ 12:20:00 PM 120 / 85 ( 101 ) @ 12:22:00 PM Clinical Evaluation EBL: 5mL-10mL Procedural Details Procedure Consent Obtained. Admit Source: In Patient. Pre-Procedure Time Out. Identified patient by full name and date of as verbalized by the patient/guarantor. Does the consent match the physician's order: Yes. Accurate & Complete Informed Consent: Yes. Inpatient/Outpatient History & Physical on Chart: Yes. If H&P is completed, is and addenduem needed: No; If yes, is the addendum complete: Yes. Visualize and Verify Site with Patient/Guarantor: N/A. Relevant Radiology Images available: N/A. The risks, benefits, and alternatives of sedation and/or procedure were discussed by physician. The patient agrees to continue. Procedure started. [facility] Clinical Fraility Score: 6: Moderately Frail. Photo Print Specialist Indications: Worsening Angina. Chest Pain Symptom Assessment: Typical Angina Symptoms. Correct patient, site and procedure confirmed by cath team. Current diagnosis: NSTEMI. PERRLA. Strong, equal hand laser beam trim operator bilaterally. Lungs clear x 5 lobes. IV Site on Arrival: 20 gauge in the left wrist. IV Site on Arrival: 20 gauge in the left anticubital. IV Fluids: 0.9% NaCl at KVO. 0 mL infused prior to vp lab. Pre Procedural Pulses: bilateral radial was 3+. Pre Procedural Pulses: bilateral dorsalis pedis was 2+. Pre Procedural Pulses: bilateral posterior tibial was 2+. Oxygen started at 2liters/min via nasal canula. right groin was prepped with chloroprep then draped in the usual sterile fashion. right radial was prepped with chloroprep then draped in the usual sterile fashion. Physician notified. Baseline sample Acquired. HR: 117 BPM. Physician arrived. Physician scrubbed in. Immediate Pre-Procedure Time Out. Correct Patient: Yes; Correct Procedure: Yes; Correct Site: Yes; Correct Patient Position: Yes; Correct Supplies: Yes; Dried Flammable Prep: Yes; Blood Products Available: Yes;. Lidocaine 1% infiltrated to the right radial. Arterial access obtained. A 5 northern irish TIG catheter in over wire. Multiple views taken of left coronary artery. Catheter redirected to the RCA. Multiple views taken of right coronary artery. Catheter removed over wire. Physician scrubbed out to speak with family. Dr. Jenkins scrubbed in to perform intervention. PCI Indication: NSTE. Patient's family updated. add inventory: Co-ferry pilot, endoflator. 6 northern irish XB 3 guide catheter was inserted over the wire. Runthrough guidewire was advanced through the guide catheter to lesion in the mid LAD. Balloon inserted to lesion in the mid LAD. Inflation number : 1 A AB TREK 2.50X12 RX BALLOON was prepped and advanced across the Mid LAD , then inflated to 8 YUMIKO for 0:10 seconds. Inflation number: 2 The AB TREK 2.50X12 RX BALLOON was reinflated across the Mid LAD, to 8 YUMIKO for 0:10 seconds. Balloon out. Stent inserted to lesion in the mid LAD. Inflation Number : 3 A MDT R ADRIÁN 2.75X15 HANNA -Lot Number# [id number] EXP 12-12-25 was prepped and advanced across the Mid LAD. The stent was deployed at 12 YUMIKO for 0:16 seconds. Inflation number: 4 The stent balloon was then re-inflated across the Mid LAD to 6 YUMIKO for 0:14 seconds. Stent balloon out over wire. AP pads applied. Stent inserted to lesion in the mid LAD. Inflation Number : 5 A MDT R ADRIÁN 2.5X26 HANNA -Lot Number# [id number] EXP 07-12-2024 was prepped and advanced across the Mid LAD. The stent was deployed at 12 YUMIKO for 0:17 seconds. Stent balloon out over wire. Results checked. Runthrough wire redirected to proximal LAD. 2nd runthrough wire in through guide catheter to lesion in mid circumflex. 2nd runthrough wire out. 2nd runthrough in through guide catheter. Unable to cross lesion, guidewire removed. 2nd runthrough in through guide catheter to lesion in mid circumflex. Guidewire advanced across lesion. Balloon inserted to lesion in the mid Circ. Runthrough wire parked in proximal LAD, pulled into guide catheter. Inflation number : 1 A AB TREK 2.50X12 RX BALLOON was prepped and advanced across the Mid CX , then inflated to 8 YUMIKO for 0:11 seconds. Inflation number: 2 The AB TREK 2.50X12 RX BALLOON was reinflated across the Mid CX, to 8 YUMIKO for 0:09 seconds. Inflation number: 3 The AB TREK 2.50X12 RX BALLOON was reinflated across the Mid CX, to 8 YUMIKO for 0:09 seconds. Inflation number: 4 The AB TREK 2.50X12 RX BALLOON was reinflated across the Mid CX, to 10 YUMIKO for 0:09 seconds. Balloon out. Results checked. 1st runthrough wire removed through guide catheter. Stent inserted to lesion in the mid Circ. Undeployed 2.75 X 30mm stent out over wire. 6fr Guideliner in over runthrough wire. Stent inserted to lesion in the mid Circ. unable to cross lesion. Undeployed 2.75 X 30mm stent out over wire. Guideliner pulled back into guide catheter. Balloon inserted to lesion in the mid Circ. unable to cross lesion, NC 2.75 X 12mm balloon out over wire. Guideliner out over wire. Balloon inserted to lesion in the mid Circ. Inflation number: 5 The AB TREK 2.50X12 RX BALLOON was reinflated across the Mid CX, to 12 YUMIKO for 0:12 seconds. Inflation number: 6 The AB TREK 2.50X12 RX BALLOON was reinflated across the Mid CX, to 12 YUMIKO for 0:11 seconds. Inflation number: 7 The AB TREK 2.50X12 RX BALLOON was reinflated across the Mid CX, to 14 YUMIKO for 0:12 seconds. Balloon out. Results checked. Stent inserted to lesion in the mid Circ. unable to cross lesion. Undeployed 2.75 X 30mm stent out over wire. ACT drawn. Results 330 seconds. Therapeutic limits - pre-heparin administration 90-150 seconds and monitoring heparin during a vascular procedure >250 seconds. 2nd runthrough wire in through guide catheter to lesion in mid circ, seated in OM. Stent inserted to lesion in the mid Circ. unable to cross lesion. Undeployed 2.75 X 30mm stent out over wire. Stent 2.75 X 18mm inserted to lesion in the mid Circ over the second runthrough wire. unable to cross lesion. Undeployed 2.75 X 18mm stent out over wire. Runthrough wires out. Guide catheter out. Radial procedure aborted. A TR Band was successful obtaining hemostatsis at the Right Radial artery insertion site. A 16Fr albrecht catheter was inserted without resistance maintaining sterile technique. Bag to gravity with clear urine returning. Lidocaine 1% infiltrated to the right groin. Arterial access obtained with micropuncture set. 6 northern irish XB 3.5 guide catheter was inserted over the wire. Runthrough guidewire was advanced through the guide catheter to lesion in the mid Circ. Wire out to reshape. Runthrough guidewire was advanced through the guide catheter to lesion in the mid Circ. Wire out to reshape. Runthrough guidewire was advanced through the guide catheter to lesion in the mid Circ. Wire out. Third runthrough wire obtained. New runthrough guidewire was advanced through the guide catheter to lesion in the mid Circ. Unable to advance guidewire. Runthrough wire out. 90 degree super cross microcatheter and 300cm Runthrough wire advanced through guide catheter. Anesthesia arrived to manage sedation per Dr. Jenkins request. Guidewire advanced across lesion. Super cross microcatheter out. Pt switched from 2L NC to 10Liters Oxymask. 300cm runthrough out. 180cm runthrough wire in through guide catheter. Runthrough wire out. 180cm runthrough wire in through guide catheter. Runthrough wire out. 90 degree super cross microcatheter and 300cm Runthrough wire advanced through guide catheter. Nitro gtt titrated to 10mcg/min by Khalif Peterson RN. Supercross catheter out. Guidewire advanced across lesion. Balloon inserted to lesion in the mid Circ. Inflation number: 8 The AB TREK 2.50X12 RX BALLOON was reinflated across the Mid CX, to 10 YUMIKO for 0:14 seconds. Inflation number: 9 The AB TREK 2.50X12 RX BALLOON was reinflated across the Mid CX, to 10 YUMIKO for 0:09 seconds. Inflation number: 10 The AB TREK 2.50X12 RX BALLOON was reinflated across the Mid CX, to 10 YUMIKO for 0:08 seconds. Inflation number: 11 The AB TREK 2.50X12 RX BALLOON was reinflated across the Mid CX, to 12 YUMIKO for 0:09 seconds. Balloon out. Stent inserted to lesion in the mid Circ. Inflation Number : 12 A SHAHID Garcia ADRIÁN 2.75X30 HANNA -Lot Number#[id number] EXP 08-20-2024 was prepped and advanced across the Mid CX. The stent was deployed at 12 YUMIKO for 0:22 seconds. Stent balloon out over wire. Results checked. ACT drawn. Results out of range high results. Therapeutic limits - pre-heparin administration 90-150 seconds and monitoring heparin during a vascular procedure >250 seconds. IVUS catheter in over runthrough wire. IVUS run performed of distal left main. IVUS catheter out. IVL shockwave balloon in over wire. Shockwave balloon out over wire. IVL shockwave balloon in over wire. Inflation number : 1 A Shockwave 4.0 X 12mm IVL Balloon was prepped and advanced across the LMCA , then inflated to 4 YUMIKO for 0:21 seconds. IVL 10 pulses performed of distal left main artery. Inflation number: 2 The Shockwave 4.0 X 12mm IVL Balloon was reinflated across the LMCA, to 4 YUMIKO for 0:15 seconds. IVL 10 pulses performed of distal left main artery. Nitro gtt titrated off due to hypotension. Shockwave balloon out over wire. Balloon inserted to lesion in the mid Circ. Inflation number : 3 A MDT ES EUPHORA RX [id number] BALLOON was prepped and advanced across the LMCA , then inflated to 12 YUMIKO for 0:15 seconds. Balloon out. Inflation Number : 4 A SHAHID Garcia ADRIÁN 4.0X15 HANNA -Lot Number# [id number] EXP 07-30-2023 was prepped and advanced across the LMCA. The stent was deployed at 12 YUMIKO for 0:21 seconds. Results checked. Runthrough wire out. ACT drawn. Results 245 seconds. Therapeutic limits - pre-heparin administration 90-150 seconds and monitoring heparin during a vascular procedure >250 seconds. A Right femoral angiogram was performed to determine safe placement of closure device. A Suture was successful obtaining hemostatsis at the Right Femoral artery insertion site. Sheath(s) sutured into position with 2-0 silk and sterile 4x4's and Op-site applied over the site. No oozing or signs and symptoms of hematoma noted. Arterial sheath flushed and connected to tranducer and pressure bag with heparinized saline. Post Procedure: Pulses reassessed and unchanged. PERRL. Pt remains sedated unable to assess laser beam trim operator. No VTE prophylaxis required. Post-op diagnosis: Severe multivessel CAD, status post PCI placement of 4 stents. Complications: None. Estimated blood loss: 5mL-10mL. Airway - Unaffected, no intervention required; spontaneous ventilation. Circulation: W/N/L, pulses unchanged. Nausea/Vomiting: No. Responsiveness - Remains sedated. Does not arouse to verbal stimuli. Arouses to painful stimuli. Medication's Wasted: Other = Diphenhydramine 25mg. Total IV fluids: 430 mL. Medication's Wasted: Nitro = 49.8 mg. Medication's Wasted: Other = Fentanyl 25mcg, Versed 1 mg. Procedure completed. Patient transferred by bed to ICU. Vital chart was stopped. Access Site Site: Right Radial artery Sheath Size: 6 Fr Hemostasis Method: TR Band Hemostasis Success: Successful Site: Right Femoral artery Sheath Size: 6 Fr Hemostasis Method: Suture Hemostasis Success: Successful Procedure Medications Start: 8:04 AM Stop: 8:04 AM Medication: Fentanyl Amount: 25 mcg Route: I.V. Start: 8:04 AM Stop: 8:04 AM Medication: Versed Amount: 1 mg Route: I.V. Start: 8:07 AM Stop: 8:07 AM Medication: Diphendryamine Amount: 25 mg Route: I.V. Start: 8:09 AM Stop: 8:09 AM Medication: Nitrogylcerin Amount: 200 mcg Route: I.A. Start: 8:10 AM Stop: 8:10 AM Medication: Heparin Amount: 5000 units Route: I.V. Start: 8:28 AM Stop: 8:28 AM Medication: Versed Amount: 1 mg Route: I.V. Start: 8:41 AM Stop: 8:41 AM Medication: Fentanyl Amount: 25 mcg Route: I.V. Start: 8:43 AM Stop: 8:43 AM Medication: Morphine Amount: 2 mg Route: I.V. Start: 8:48 AM Stop: 8:48 AM Medication: Morphine Amount: 2 mg Route: I.V. Start: 8:51 AM Stop: 8:51 AM Medication: Nitrogylcerin Amount: 10 mcg/min Route: I.V. drip Start: 8:52 AM Stop: 8:52 AM Medication: Heparin Amount: 1000 units Route: I.V. Start: 8:54 AM Stop: 8:54 AM Medication: Nitrogylcerin Amount: 15 mcg/min Route: I.V. drip Start: 8:56 AM Stop: 8:56 AM Medication: Versed Amount: 0.5 mg Route: I.V. Start: 8:57 AM Stop: 8:57 AM Medication: Nitrogylcerin Amount: 20 mcg/min Route: I.V. drip Start: 9:00 AM Stop: 9:00 AM Medication: Versed Amount: 0.5 mg Route: I.V. Start: 9:11 AM Stop: 9:11 AM Medication: Fentanyl Amount: 25 mcg Route: I.V. Start: 9:15 AM Stop: 9:15 AM Medication: Fentanyl Amount: 25 mcg Route: I.V. Start: 9:33 AM Stop: 9:33 AM Medication: Versed Amount: 0.5 mg Route: I.V. Start: 9:35 AM Stop: 9:35 AM Medication: Fentanyl Amount: 25 mcg Route: I.V. Start: 9:39 AM Stop: 9:39 AM Medication: Versed Amount: 0.5 mg Route: I.V. Start: 9:41 AM Stop: 9:41 AM Medication: Fentanyl Amount: 25 mcg Route: I.V. Start: 9:54 AM Stop: 9:54 AM Medication: Fentanyl Amount: 25 mcg Route: I.V. Start: 9:56 AM Stop: 9:56 AM Medication: Versed Amount: 1 mg Route: I.V. Start: 10:15 AM Stop: 10:15 AM Medication: Heparin Amount: 1000 units Route: I.V. Start: 10:29 AM Stop: 10:29 AM Medication: Heparin Amount: 1000 units Route: I.V. Start: 11:13 AM Stop: : AM Medication: 0.9% Saline Amount: 999 ml/hr Route: I.V. bolus Start: 11:26 AM Stop: 11:26 AM Medication: Aggrastat 12.5 mg/250 mL Amount: 35 ml Route: I.V. bolus Start: 11:26 AM Stop: 11:26 AM Medication: Aggrastat 12.5 mg/250 mL Amount: 12.6 ml/hr Route: I.V. bolus Start: 11:32 AM Stop: 11:32 AM Medication: Heparin Amount: 1000 units Route: I.V. I, the attending physician, have reviewed and verified all procedure medications. Yes, all medications given per verbal order History/Risk Factors Hypertension: Yes Dyslipidemia: Yes Peripheral Arterial Disease (PAD): No Myocardial Infarction (ID): Yes Obesity: No Renal Disease: No Prior Interventions PCI: Yes CABG: No Valve Surgery: No Date of PCI: 02/25/2009 Report Signatures Finalized by Rich Jenkins MD on 07/24/2023 06:45 PM
--- NOTE | 2023-07-15 07:38 | P.CONIM_ITS ---
Providers/Reason For Consult 2 Consulting Physician/Specialty*: Rich Jenkins MD/ Cardiology Reason for Consult*: NSTEMI Requesting Physician: Dr Geiger Attending Physician: Jhon Kline MD Primary Care Provider: Minh Fay DO History of Present Illness History of Present Illness Dalton Lo is a 58 year old male with past medical history of CAD, diabetes, COPD, hypertension who stopped taking medications for several months. He has hearing impairment and is nonverbal. He was indicating to family recently that he has been having chest pain or shortness of breath. He was admitted to hospital with a non-ST elevation [place] and increase in his troponin. Overnight has been having crushing chest pain. Along with that he has been getting diaphoretic and pale. He was put on nitro drip and was loaded with aspirin and Plavix. Also started on anticoagulation. EKG showing dynamic changes with T wave inversions in the anterolateral leads. He can not give much history and history obtained from brother and chart. Per his brother, he does not have good functional capacity and sits in the bed entire day. He lives with brother now who is also the DPOA Review of Systems 2 Card: Reports: chest pain Resp: Reports: dyspnea GI: Denies: abdominal pain Medications/Allergies Home Medications Medication Instructions Recorded Confirmed Last Taken Type blood-glucose meter #1 ea 06/21/21 07/15/23 Unknown Rx omega-3 fatty acids 1,000 mg 1,000 mg PO DAILY 07/15/23 07/15/23 07/14/23 History capsule Allergies Allergy/AdvReac Type Severity Reaction Status Date / Time No Known Allergies Allergy Verified 10/25/21 07:54 Current Medications Generic Name Dose Route Start Last Admin Trade Name Markq PRN Reason Stop Dose Admin Aspirin 81 mg 07/15/23 05:14 07/15/23 05:38 Aspirin 81 Mg Ec Tablet PO 81 mg DAILY LUCIO Administration Carvedilol 3.125 mg 07/15/23 05:15 07/15/23 05:38 Carvedilol 3.125 Mg Tablet PO 3.125 mg Q12H LUCIO Administration Clopidogrel Bisulfate 75 mg 07/15/23 05:15 07/15/23 05:38 Clopidogrel 75 Mg Tablet PO 75 mg DAILY LUCIO Administration Hydralazine HCl 10 mg 07/15/23 03:49 07/15/23 04:02 Hydralazine 20 Mg/Ml Inj 1 Ml IVP 10 mg Q4H PRN Administration high blood pressure Nitroglycerin/Dextrose 50 mg in 250 mls @ 0 mls/hr 07/15/23 05:15 07/15/23 06:30 Nitroglycerin Drip IV 20 mcg/min .Q0M LUCIO 6 mls/hr Titration Protocol Per Protocol Morphine Sulfate 2 mg 07/15/23 03:04 07/15/23 03:37 Morphine 4 Mg/Ml Sdv 1 Ml IVP 2 mg Q4H PRN Administration SEVERE PAIN Ondansetron HCl 4 mg 07/15/23 03:04 07/15/23 06:17 Ondansetron 2 Mg/Ml Sdv 2 Ml IVP 4 mg Q8H PRN Administration vomiting, or N/V if npo PFSH Acute 2 PFSH: Medical History Carotid stenosis History of heart attack Enrolled in chronic care management COPD (chronic obstructive pulmonary disease) Peptic ulcer disease Hypertension Hyperlipidemia Atherosclerosis of [place] coronary artery of [place] heart with unstable angina pectoris Diabetes Esophageal dysfunction ASHD (arteriosclerotic heart disease) Surgical History Hx of neck surgery Social History Smoking and tobacco/nicotine status: former use of tobacco/nicotine Quit status (tobacco/nicotine): has quit using Year quit tobacco: 2013 Alcohol intake: former Vitals/I&O/Wt Last Vital Signs Temp 97.7 F 07/15/23 04:12 Pulse 108 H 07/15/23 06:30 Resp 19 H 07/15/23 06:30 BP 161/124 07/15/23 06:30 Pulse Ox 89 L 07/15/23 06:30 O2 Del Method Nasal Cannula 07/15/23 06:30 O2 Flow Rate 2 07/15/23 06:30 07/14/23 07/15/23 07/15/23 22:59 06:59 14:59 Intake Total 1002.200 / 1002.200 Output Total 700 / 700 Balance 302.200 / 302.200 Weight last 48 hrs Weight 151 lb Weight 151 lb Physical Exam 2 Narrative: GENERAL: Patient is alert, awake and oriented x3. [] NECK: No jugular vein distension. [] HEENT: No cyanosis. No icterus. No pallor. [] HEART: Regular S1 and S2. No murmur, rub or gallop. [] LUNGS: Clear to auscultate bilaterally. [] CENTRAL NERVOUS SYSTEM: Grossly nonfocal. [] EXTREMITIES: Lower extremities with 1+ edema bilaterally. Data 07/14/23 21:43 07/14/23 21:43 A&P Assessment and plan (1) Non-ST elevated myocardial infarction (non-STEMI): (2) Chest pain: (3) Hypertension: Qualifiers: Hypertension type: essential hypertension Qualified Code(s): I10 - Essential (primary) hypertension (4) Hyperlipidemia: Qualifiers: Hyperlipidemia type: mixed hyperlipidemia Qualified Code(s): E78.2 - Mixed hyperlipidemia (5) ASHD (arteriosclerotic heart disease): (6) Diabetes: Qualifiers: Diabetes mellitus type: type 2 Diabetes mellitus manager terminal insulin use: without manager terminal use Diabetes mellitus complication status: without complication Qualified Code(s): E11.9 - Type 2 diabetes mellitus without complications (7) COPD (chronic obstructive pulmonary disease): Qualifiers: COPD type: chronic bronchitis Chronic bronchitis type: unspecified Qualified Code(s): J42 - Unspecified chronic bronchitis Plan Patient is nonverbal and has deafness. He has stopped taking all his medicines. Recently has been complaining of chest pain and shortness of breath to the family. He is now living with his brother. His functional capacity is limited. He has COPD. He has been having no severe substernal chest pain with dynamic EKG changes. Will proceed with urgent coronary angiogram with possible percutaneous coronary intervention.Risks and benefits of the procedure discussed in detail with the brother who is DPOA. Brother says he will ensure patient's compliance with medications as he is living with them now. Continue aspirin and plavix Full echocardiogram read pending. Bedside echo shows a moderate to severe LV dysfunction. He is tacycardic. Blood pressure is stable at this time however with LV dysfunction and tachycardia, he may be going into early shock Thank you for involving us with care of this patient. We will continue to follow. Please call with questions. Consult Attestations 2 Medical Necessity Statement: Care expected to cross 2 midnight. Coding Level of Care Code Acute Code for g Fwd Diagnoses Non-ST elevated myocardial infarction (non-STEMI) I21.4 Chest pain R07.9 Essential hypertension I10 Hypertension type: essential hypertension Mixed hyperlipidemia E78.2 Hyperlipidemia type: mixed hyperlipidemia ASHD (arteriosclerotic heart disease) I25.10 Type 2 diabetes mellitus without complication, without long-term current use of insulin E11.9 Diabetes mellitus type: type 2 Diabetes mellitus senior living insulin use: without manager terminal use Diabetes mellitus complication status: without complication Chronic bronchitis, unspecified chronic bronchitis type J42 COPD type: chronic bronchitis Chronic bronchitis type: unspecified
--- NOTE | 2023-07-15 08:00 | W.PM.OPSUD ---
Surgery/Procedure H&P Update DATE OF PROCEDURE: July 15, 2023 DATE H&P PERFORMED: 07/15/23 H&P UPDATE INFORMATION: I have reviewed H&P completed within last 30 days, I have examined patient prior to procedure and No changes to prior documentation CHANGES TO PREVIOUS DOCUMENTATION: I spoke with patient's brother who is DPOA and consent was obtained for left heart cath with possible PCI. He understands the risks and benefits. PREOP DIAGNOSIS: NSTEMI PRIMARY INDICATION FOR PROCEDURE: NSTEMI PLANNED PROCEDURE: Left heart cath with possible percutaneous coronary intervention PATIENT REASSESSED PRIOR TO SEDATION, WITH NO CHANGE NOTED: Yes PHYSICAL EXAM: alert, clear to auscultation bilaterally and regular rate & rhythm AIRWAY EVAL/ANESTHESIA PLAN: normal airway, ASA III, Local Anesthesia, Risks, benefits & alternatives of sedation and/or procedure discussed and Patient agrees to continue as planned
--- NOTE | 2023-07-15 08:57 | PC.PHAR ---
Brother states pt no longer taking ANY meds but Fish Oil. The following list has been removed: ALBUTEROL HFA 90MCG-2 PUFFS Q6H PRN, ASPIRIN 81MG DAILY, ATORVASTATIN 80MG DAILY, BENAZEPRIL 10MG DAILY, CLOPIDOGREL 75MG DAILY, EZETIMIBE 10MG DAILY, FARXIGA 10MG IN AM, ISOSORBIDE MONITRATE 30MG ER DAILY, METFORMIN 1,000MG TWICE DAILY, PANTOPRAZOLE 40MG TWICE DAILY, AND SYMBICORT 160-4.5MCG 2 PUFFS TWICE DAILY. 07/15/23
--- NOTE | 2023-07-15 10:32 | ANES.PREANE2 ---
Pre-Anesthetic Assessment Height/Weight: Height 1.65 m Weight 68.492 kg Temp Pulse Resp BP Pulse Ox O2 Del Method O2 Flow Rate 97.7 F 108 H 19 H 161/124 89 L Nasal Cannula 2 07/15/23 04:12 07/15/23 06:30 07/15/23 06:30 07/15/23 06:30 07/15/23 06:30 07/15/23 06:30 07/15/23 06:30 Preop Diagnosis: NSTEMI Cardiac Cath Anesthetic Plan ASA status: 4E Anesthesia: MAC Other: called urgently to feed mill lab technician after patieint already sedated on table to assist with further sedation, thus anesthesia consent and H & P unable to be obtained Risk of > 500 ml blood loss (7ml/kg in children): No Medications/Allergies Home Medications Medication Instructions Recorded Confirmed Last Taken Type blood-glucose meter #1 ea 06/21/21 07/15/23 Unknown Rx omega-3 fatty acids 1,000 mg 1,000 mg PO DAILY 07/15/23 07/15/23 07/14/23 History capsule Allergies Allergy/AdvReac Type Severity Reaction Status Date / Time No Known Allergies Allergy Verified 10/25/21 07:54 Current Medications Generic Name Dose Route Start Last Admin Trade Name Freq PRN Reason Stop Dose Admin Aspirin 81 mg 07/15/23 05:14 07/15/23 05:38 Aspirin 81 Mg Ec Tablet PO 81 mg DAILY LUCIO Administration Budesonide 0.5 mg 07/15/23 08:00 07/15/23 08:48 Budesonide 0.5 Mg/2 Ml Neb INHALATION Not Given BID.RESPIRATORY LUCIO Carvedilol 3.125 mg 07/15/23 05:15 07/15/23 05:38 Carvedilol 3.125 Mg Tablet PO 3.125 mg Q12H LUCIO Administration Clopidogrel Bisulfate 75 mg 07/15/23 05:15 07/15/23 05:38 Clopidogrel 75 Mg Tablet PO 75 mg DAILY LUCIO Administration Hydralazine HCl 10 mg 07/15/23 03:49 07/15/23 04:02 Hydralazine 20 Mg/Ml Inj 1 Ml IVP 10 mg Q4H PRN Administration high blood pressure Nitroglycerin/Dextrose 50 mg in 250 mls @ 0 mls/hr 07/15/23 05:15 07/15/23 06:30 Nitroglycerin Drip IV 20 mcg/min .Q0M LUCIO 6 mls/hr Titration Protocol Per Protocol Morphine Sulfate 2 mg 07/15/23 03:04 07/15/23 03:37 Morphine 4 Mg/Ml Sdv 1 Ml IVP 2 mg Q4H PRN Administration SEVERE PAIN Ondansetron HCl 4 mg 07/15/23 03:04 07/15/23 06:17 Ondansetron 2 Mg/Ml Sdv 2 Ml IVP 4 mg Q8H PRN Administration vomiting, or N/V if npo PFSH Anesthesia Medical History (Updated 07/15/23 @ 01:19 by Andrea Geiger MD) Carotid stenosis History of heart attack Enrolled in chronic care management COPD (chronic obstructive pulmonary disease) Peptic ulcer disease Hypertension Hyperlipidemia Atherosclerosis of [place] coronary artery of [place] heart with unstable angina pectoris Diabetes Esophageal dysfunction ASHD (arteriosclerotic heart disease) Surgical History Hx of neck surgery Social History Smoking and tobacco/nicotine status: former use of tobacco/nicotine Quit status (tobacco/nicotine): has quit using Year quit tobacco: 2013 Alcohol intake: former Data Anesthesia 07/14/23 21:43 07/14/23 21:43 Short CBC 07/14/23 Range/Units 21:43 WBC 10.49 (3.29-11.43) 10^3/uL Hgb 18.90 H (11.27-16.99) g/dL Hct 52.1 (37-53) % MCV 98.9 (82-101) fl Plt Count 264 (157-399) 10^3/cmm Neut % (Auto) 81.2 % Neut # (Auto) 8.52 H (1.8-7.7) 10^3/uL BMP 07/14/23 21:43 Sodium 132 L Potassium 4.1 Chloride 95 L Carbon Dioxide 20 L BUN 11 Creatinine 0.9 Glucose 155 H Calcium 9.0 Cardiac Enzymes 07/14/23 07/14/23 07/15/23 Range/Units 21:43 23:29 04:13 Creatine Kinase 216 (39-308) U/L Troponin T Baseline 62 H (0-15) ng/L Troponin T 120 Minute 92.33 H (0-15) ng/L Delta Troponin T 30.33 H* (0-10) ABS# Troponin T Hi Sens 6Hr 126.0 H (0-15) ng/L Troponin T Hi Sens 6Hr Delta 64.0 H* (0-12) ng/L NT-Pro-B Natriuret Pep 250 H (0-125) pg/mL 07/15/23 Range/Units 06:06 Creatine Kinase (39-308) U/L Troponin T Baseline 116 H* (0-15) ng/L Troponin T 120 Minute (0-15) ng/L Delta Troponin T (0-10) ABS# Troponin T Hi Sens 6Hr (0-15) ng/L Troponin T Hi Sens 6Hr Delta (0-12) ng/L NT-Pro-B Natriuret Pep (0-125) pg/mL Liver Function 07/14/23 Range/Units 21:43 Total Bilirubin 0.5 (0.15-1.2) mg/dL AST 48 H (0-40) U/L ALT 48 H (0-41) U/L Alkaline Phosphatase 66 (40-130) U/L Albumin 4.3 (3.5-5.2) g/dL Urine 07/15/23 Range/Units 04:00 Urine Color Light yellow (Yellow) Urine Appearance Clear (CLEAR) Urine pH 5 (5-7) Ur Specific [place] 1.010 (1.005-1.030) Urine Protein Neg (Negative) Urine Glucose (UA) Norm (Normal) Urine Ketones Negative (Negative) Urine Nitrate Negative (Negative) Urine Bilirubin Neg (Negative) Ur Leukocyte Esterase Negative (Negative) Coags 07/14/23 21:50 D-Dimer 0.48 Cardiac Studies: No Data to Display
--- NOTE | 2023-07-15 11:11 | ECG_ITS ---
[facility] Test Date: 2023-07-15 Pat Name: Dalton Lo Department: Room: ICU03 Gender: Male Appellate [employer] Clerk: : 1965 Requested By: Andrea Geiger Order Number: [id number] Vinay MD: Rich Jenkins M.D. Measurements Intervals [place] Rate: 111 P: 72 SC: 183 QRS: -54 QRSD: 139 T: 120 QT: 381 QTc: 518 Interpretive Statements SINUS TACHYCARDIA POSSIBLE LEFT ATRIAL ENLARGEMENT [-0.1mV P-WAVE IN V1/V2] INTRAVENTRICULAR CONDUCTION DELAY [130+ ms QRS DURATION] ANTEROLATERAL ISCHEMIA Compared to ECG 07/15/2023 05:50:06 Intraventricular conduction delay now present Right bundle-branch block no longer present Left anterior fascicular block no longer present T-wave abnormality no longer present Electronically Signed On 07-15-2023 13:18:38 CDT by Rich Jenkins M.D. [email or web address]
--- NOTE | 2023-07-15 12:45 | PM.MISC ---
Miscellaneous Note Purpose of Documentation: Brief note Note: Patient underwent coronary angiogram that showed severe distal left main artery stenosis. Critical mid LAD stenosis, critical left circumflex artery stenosis. Heart team discussion done with CT surgery team at [facility] (Dr De La Fuente). Given patient's ongoing symptoms of chest pain, immbobility per patient's family and no significant functional capacity,COPD, shared decision made to proceed with multivessel PCI. Patient's family also called and situation discussed with brother who is DPOA.He agreed and said he will ensure patient's complicance with medications. We then performed PCI of mid LAD with 2 stents, Left main artery with 1 stent and left circumflex artery to OM1 with 1 stent. 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 Patient stayed stable hemodynamically. However with sedation he was very uncomfortable and could not lay down still. We requested anesthesia team to assist with the procedure Recommendations Patient has been loaded with aspirin and plavix. Continue Given multiple stents, we will keep on aggrastat for 4 hours Continue nitro gtt, he may have chest discomfort from non flow limiting dissection. Continue ICU stay
--- NOTE | 2023-07-15 13:03 | USCV_ITS ---
Lo Dalton Age: 58 Gender: M : 1965 Exam Date: 07/15/2023 14:08 Ordering Phys: Rich Jenkins M.D ([email or web address]) Technologist: Exam Location: [facility] [place] Indication: post cath RIGHT LEFT Brachial 130.00 mmHg Brachial 130.00 mmHg Pressure (mmHg) Waveform Pressure (mmHg) Waveform 130.00 TRANSPORTATION ENGINEER 130.00 130.00 DPA 130.00 1.00 Ankle/Brachial Index 1.00 FINDINGS Resting SURYA 1.0 on both sides CONCLUSIONS 1. Normal resting ABIs bilaterally. 2. No significant arterial obstruction, based on the above findings. Dr Allison Gonzalez MD [facility] (Electronically Signed) Final Date: 15 July 2023 17:51 S
--- NOTE | 2023-07-15 13:55 | USCV_ITS ---
Dalton Lo Age: 58 Gender: M : 1965 Exam Date: 07/15/2023 14:16 Ordering Phys: Nida Henderson MD Technologist: [place] [facility] [place]: elevated BNP BP: / HR: Rhythm: Sinus Technical Quality: Adequate MEASUREMENTS (Male / Female) Normal Values FINDINGS Left Ventricle Right Ventricle Right Atrium Left Atrium Mitral Valve Aortic Valve Tricuspid Valve Pulmonic Valve Pericardium Aorta IVC CONCLUSIONS Limited echocardiogram performed to rule out pericardial effusion LV systolic function is severely reduced. No significant pericardial effusion seen Rich Jenkins MD (Electronically Signed) Final Date: 15 July 2023 14:53 S
[2023-07-15 14:44] LABS: ABG PCO2 44.2 mmHg (35-45); ABG PH Result 7.29 (7.35-7.45); Alveolar-Arterial Oxygen Gradi 25.4 mmHg (5-10); Arterial Blood Gas Hematocrit 64.7 % (42-52); Base Excess ABG -5.2 mmol/L (-2.0-2.0); Blood Gas Allen Test Pos; Blood Gas Operator Identificat CAK; Blood Gas Sample Site Radial, left; Blood Gas Sample Type Arterial; Carboxyhemoglobin 0.5 %THgb (0.4-20.1); HCO3 ABG 21.4 mmol/L (22-26); HGB O2 Sat 92.4 % (95-100); Ionized Calcium Level - ABG 1.1 mmol/L (1.1-1.4); Methemoglobin 0.2 % (0.4-1.5); Oxygen Device OXY MASK; PO2 ABG 69.9 mmHg (80.0-100.0); PO2 FiO2 Ratio Arterial Blood 0; Potassium Level - ABG 5.7 mmol/L (3.5-5.0); Total Hemoglobin 21.1 g/dL (14-18)
[2023-07-15 16:31] LABS: Partial Thromboplastin Time 60.6 SECONDS (23.9-36.7)
[2023-07-15 16:57] LABS: Glucose Point of Care 202 mg/dL (70-110)
[2023-07-15 17:02] LABS: Alanine Aminotransferase 40 U/L (0-41); Albumin Level 3.4 g/dL (3.5-5.2); Alkaline Phosphatase 64 U/L (40-130); Blood Urea Nitrogen 9 mg/dL (6-20); Carbon Dioxide 13 mmol/L (22-29); Chloride 102 mmol/L (98-107); Creatinine Clr Calc Pharmacy 90.4174; Globulin 3.8 g/dL (1.3-4.6); Glomerular Filtration Rate 98.9 mL/min (90-130); Glucose 181 mg/dL (65-115); Osmolality Calculated 279 mOsm/kg (285-295); Sodium 133 mmol/L (136-145); Total Bilirubin 0.8 mg/dL (0.15-1.2); Total Protein 7.2 g/dL (6.6-8.7)
[2023-07-15 17:05] LABS: Anion Gap 22.7 (5-19); Aspartate Amino Transferase 58 U/L (0-40); Potassium 4.7 mmol/L (3.5-5.1)
[2023-07-15] MEDS: pantoprazole DR 40 mg Tablet PO (17:33)
[2023-07-15] MEDS: insulin lispro 100 unit/1 mL SUBCUT (17:33)
--- NOTE | 2023-07-15 17:48 | P.PN_ITS ---
Subjective 2 Subjective: Patient was seen at bedside this morning, he is deaf and nonverbal, not comprehensive. Was sitting comfortably in bed. Hemodynamically stable and was ready to go to cardiac cath. Medications: Reviewed: Yes Vitals/I&O/Wt Last Vital Signs Temp 97.1 F L 07/15/23 16:30 Pulse 95 07/15/23 16:30 Resp 18 07/15/23 16:30 BP 122/91 07/15/23 16:30 Pulse Ox 92 07/15/23 16:15 O2 Del Method Oxymask 07/15/23 12:37 O2 Flow Rate 5 07/15/23 12:37 07/15/23 07/15/23 07/15/23 06:59 14:59 22:59 Intake Total 1002.200 / 1002.200 Output Total 700 / 700 1600 / 1600 Balance 302.200 / 302.200 -1600 / -1600 Weight last 48 hrs Weight 68.492 kg Weight 68.492 kg Physical Exam 2 Narrative: GENERAL: Patient is alert, awake unable to assess orientation due to being deaf and nonverbal [] NECK: No jugular vein distension. [] HEENT: No cyanosis. No icterus. No pallor. [] HEART: Regular S1 and S2. No murmur, rub or gallop. [] LUNGS: Clear to auscultate bilaterally. [] CENTRAL NERVOUS SYSTEM: Grossly nonfocal. [] EXTREMITIES: Lower extremities with 1+ edema bilaterally. Data 07/14/23 21:43 07/15/23 15:15 A&P Assessment and plan (1) Non-ST elevated myocardial infarction (non-STEMI): (2) Chest pain: (3) Hypertension: Qualifiers: Hypertension type: essential hypertension Qualified Code(s): I10 - Essential (primary) hypertension (4) Hyperlipidemia: Qualifiers: Hyperlipidemia type: mixed hyperlipidemia Qualified Code(s): E78.2 - Mixed hyperlipidemia (5) ASHD (arteriosclerotic heart disease): (6) Diabetes: Qualifiers: Diabetes mellitus type: type 2 Diabetes mellitus assisted insulin use: without assisted use Diabetes mellitus complication status: without complication Qualified Code(s): E11.9 - Type 2 diabetes mellitus without complications (7) COPD (chronic obstructive pulmonary disease): Qualifiers: COPD type: chronic bronchitis Chronic bronchitis type: unspecified Qualified Code(s): J42 - Unspecified chronic bronchitis Plan Patient underwent coronary angiogram that showed severe distal left main artery stenosis. Critical mid LAD stenosis, critical left circumflex artery stenosis. He underwent multivessel PCI of mid LAD with 2 stents, Left main artery with 1 stent and left circumflex artery to OM1 with 1 stent. 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 Patient stayed stable hemodynamically. Continue aspirin Plavix Coreg Lipitor and Aggrastat Aggrastat and NTG drip as per cardiology He is full code for now Cardiac diet SCD for DVT prophylaxis. Attestations 2 Medical Necessity Statement*: He needs continued hospitalization more than 2 days for monitoring post multivessel PCI Time Spent in Patient Care: 30 minutes Coding Level of Care Code Acute Code for [facility] Fwd Diagnoses Non-ST elevated myocardial infarction (non-STEMI) I21.4 Chest pain R07.9 Essential hypertension I10 Hypertension type: essential hypertension Mixed hyperlipidemia E78.2 Hyperlipidemia type: mixed hyperlipidemia ASHD (arteriosclerotic heart disease) I25.10 Type 2 diabetes mellitus without complication, without long-term current use of insulin E11.9 Diabetes mellitus type: type 2 Diabetes mellitus terminal computer operator insulin use: without terminal computer operator use Diabetes mellitus complication status: without complication Chronic bronchitis, unspecified chronic bronchitis type J42 COPD type: chronic bronchitis Chronic bronchitis type: unspecified Time Spent (min) 30
[2023-07-15] MEDS: budesonide 0.5 mg/2 mL Neb INHALATION (19:17)
[2023-07-15 20:32] LABS: Partial Thromboplastin Time 26.3 SECONDS (23.9-36.7)
--- NOTE | 2023-07-15 21:58 | PC.NURSE ---
Patient on continuous vital sign monitoring and telemetry. Educated patient on sheath pull protocol. Site assessed, no hematoma or bleeding present. Sheath removed, pressure held for 20 minutes. No bleeding or hematoma present. Dressing applied. Educated patient on signs/symptoms of bleeding, post sheath bedrest protocol. Call light and bedside table within reach.
[2023-07-16] VITALS (92 sets, daily range): BP systolic 80–126; BP diastolic 47–106; PULSE 69–94; RESP 14–28; TEMP 36.6–37.2; O2SAT 89–97; BMI 25.4
[2023-07-16] MEDS: carvedilol 3.125 mg Tablet PO ×2 (04:33→17:48)
--- NOTE | 2023-07-16 07:29 | P.PN_ITS ---
Subjective 2 Subjective: Patient is doing well. No chest pain. had mild chest pain last night briefly. Vitals/I&O/Wt Last Vital Signs Temp 97.9 F 07/16/23 00:22 Pulse 87 07/16/23 05:23 Resp 17 07/16/23 04:17 BP 122/75 07/16/23 04:17 Pulse Ox 93 07/16/23 04:17 O2 Del Method Room Air 07/16/23 00:22 O2 Flow Rate 5 07/15/23 19:17 07/15/23 07/16/23 07/16/23 22:59 06:59 14:59 Intake Total 0 / 9 240 / 249 Output Total 1600 / 1600 500 / 2100 Balance -1600 / -1591 -260 / -1851 Weight last 48 hrs Weight 153 lb Weight 151 lb Weight 151 lb Physical Exam 2 Narrative: GENERAL: Patient is alert, awake and oriented x3. [] NECK: No jugular vein distension. [] HEENT: No cyanosis. No icterus. No pallor. [] HEART: Regular S1 and S2. No murmur, rub or gallop. [] LUNGS: Clear to auscultate bilaterally. [] CENTRAL NERVOUS SYSTEM: Grossly nonfocal. [] EXTREMITIES: Lower extremities with 1+ edema bilaterally. Urinary Catheter Management: [place]: Cath Placed During This Visit: yes Reason for Continuing Indwelling Catheter: Accurate Measurement of Urinary Output in Critically Ill Patients Urinary Catheter Date of Insertion: 07/15/23 Data 07/16/23 07:43 07/16/23 07:43 A&P Assessment and plan (1) Non-ST elevated myocardial infarction (non-STEMI): (2) Chest pain: (3) Hypertension: Qualifiers: Hypertension type: essential hypertension Qualified Code(s): I10 - Essential (primary) hypertension (4) Hyperlipidemia: Qualifiers: Hyperlipidemia type: mixed hyperlipidemia Qualified Code(s): E78.2 - Mixed hyperlipidemia (5) ASHD (arteriosclerotic heart disease): (6) Diabetes: Qualifiers: Diabetes mellitus type: type 2 Diabetes mellitus terminal operator insulin use: without retirement use Diabetes mellitus complication status: without complication Qualified Code(s): E11.9 - Type 2 diabetes mellitus without complications (7) COPD (chronic obstructive pulmonary disease): Qualifiers: COPD type: chronic bronchitis Chronic bronchitis type: unspecified Qualified Code(s): J42 - Unspecified chronic bronchitis Plan Patient had multivessel PCI yesterday including left main and mid LAD and left circumflex artery into OM1. He had dissection of mid to distal left circumflex artery. However it was not flow-limiting and was treated medically. Patient overall condition has improved. Heart rate has improved. Blood pressure is normal. Lactate has improved from 5 to 2.4 this morning. Dual antiplatelet therapy with aspirin and plavix Moderate to severe LV dysfunction. We will obtain a limited echocardiogram with contrast to better assess LV function and determine if will benefit from lifevest. Mont[place] renal function closely Thank you for involving us with care of this patient. We will continue to follow. Please call with questions. Attestations 2 Medical Necessity Statement*: Care expected to cross 2 midnights. Coding Level of Care Code Acute Code for [facility] Fwd Diagnoses Non-ST elevated myocardial infarction (non-STEMI) I21.4 Chest pain R07.9 Essential hypertension I10 Hypertension type: essential hypertension Mixed hyperlipidemia E78.2 Hyperlipidemia type: mixed hyperlipidemia ASHD (arteriosclerotic heart disease) I25.10 Type 2 diabetes mellitus without complication, without long-term current use of insulin E11.9 Diabetes mellitus type: type 2 Diabetes mellitus terminal operator insulin use: without retirement use Diabetes mellitus complication status: without complication Chronic bronchitis, unspecified chronic bronchitis type J42 COPD type: chronic bronchitis Chronic bronchitis type: unspecified
[2023-07-16 07:55] LABS: Basophils # 0.1 10^3/uL (0.0-0.1); Basophils % 0.4 %; Hematocrit 50.7 % (37-53); Lymphocytes # 1.1 10^3/uL (0.8-4.8); Lymphocytes % 7.8 %; Mean Corpuscular HGB Conc 34.7 g/dL (30-55); Mean Corpuscular Hemoglobin 34.9 pg (27-33); Mean Corpuscular Volume 100.6 fl (82-101); Mean Platelet Volume 9.3 fL (7.4-10.4); Monocytes # 0.8 10^3/uL (0.2-0.9); Monocytes % 5.8 %; Neutrophils # 11.57 10^3/uL (1.8-7.7); Neutrophils % 85.7 %; Nucleated Red Blood Cells % 0 %; Platelet Count 224 10^3/cmm (157-399); Red Blood Count 5.04 10^6/uL (3.85-5.65); Red Cell Distribution Width 13.4 % (12.1-15.1); White Blood Count 13.51 10^3/uL (3.29-11.43)
[2023-07-16 08:06] LABS: Glucose Point of Care 173 mg/dL (70-110)
[2023-07-16] MEDS: pantoprazole DR 40 mg Tablet PO ×2 (08:13→17:48)
[2023-07-16] MEDS: clopidogrel 75 mg Tablet PO (08:13)
[2023-07-16] MEDS: aspirin 81 mg EC Tablet PO (08:13)
[2023-07-16] MEDS: atorvastatin 40 mg Tablet 80 MG PO (08:13)
[2023-07-16] MEDS: insulin lispro 100 unit/1 mL SUBCUT (08:13)
[2023-07-16 08:20] LABS: Alanine Aminotransferase 42 U/L (0-41); Albumin Level 3.2 g/dL (3.5-5.2); Alkaline Phosphatase 54 U/L (40-130); Anion Gap 12.5 (5-19); Aspartate Amino Transferase 151 U/L (0-40); Blood Urea Nitrogen 13 mg/dL (6-20); Calcium 8.1 mg/dL (8.5-10.5); Carbon Dioxide 29 mmol/L (22-29); Chloride 98 mmol/L (98-107); Creatinine Clr Calc Pharmacy 60.6188; Globulin 3.2 g/dL (1.3-4.6); Glucose 208 mg/dL (65-115); Osmolality Calculated 286 mOsm/kg (285-295); Potassium 4.5 mmol/L (3.5-5.1); Sodium 135 mmol/L (136-145); Total Bilirubin 0.9 mg/dL (0.15-1.2); Total Protein 6.4 g/dL (6.6-8.7)
[2023-07-16 08:21] LABS: Lactate (Lactic Acid level) 2.4 mmol/L (0.5-2.2)
[2023-07-16] MEDS: budesonide 0.5 mg/2 mL Neb INHALATION ×2 (09:32→19:52)
[2023-07-16] MEDS: ipratropium-albuterol 3 mL Neb INHALATION (09:32)
[2023-07-16 11:54] LABS: Glucose Point of Care 115 mg/dL (70-110)
--- NOTE | 2023-07-16 15:04 | P.PN_ITS ---
Subjective 2 Subjective: No acute overnight events noted. 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 But was able to follow facial expressions. Medications: Reviewed: Yes Vitals/I&O/Wt Last Vital Signs Temp 97.9 F 07/16/23 00:22 Pulse 91 07/16/23 12:00 Resp 17 07/16/23 12:00 BP 113/79 07/16/23 12:00 Pulse Ox 91 07/16/23 12:00 O2 Del Method Nasal Cannula 07/16/23 09:00 O2 Flow Rate 3 07/16/23 09:00 07/16/23 07/16/23 07/16/23 06:59 14:59 22:59 Intake Total 240 / 249 600 / 600 Output Total 500 / 2100 Balance -260 / -1851 600 / 600 Weight last 48 hrs Weight 69.4 kg Weight 68.492 kg Weight 68.492 kg Physical Exam 2 Narrative: GENERAL: Patient is alert, awake unable to assess orientation due to being deaf and nonverbal [] NECK: No jugular vein distension. [] HEENT: No cyanosis. No icterus. No pallor. [] HEART: Regular S1 and S2. No murmur, rub or gallop. [] LUNGS: Clear to auscultate bilaterally. [] CENTRAL NERVOUS SYSTEM: Grossly nonfocal. [] EXTREMITIES: Lower extremities with 1+ edema bilaterally. Urinary Catheter Management: Moura: Cath Placed During This Visit: yes Reason for Continuing Indwelling Catheter: Accurate Measurement of Urinary Output in Critically Ill Patients Urinary Catheter Date of Insertion: 07/15/23 Data 07/16/23 07:43 07/16/23 07:43 A&P Assessment and plan (1) Non-ST elevated myocardial infarction (non-STEMI): (2) Chest pain: (3) Hypertension: Qualifiers: Hypertension type: essential hypertension Qualified Code(s): I10 - Essential (primary) hypertension (4) Hyperlipidemia: Qualifiers: Hyperlipidemia type: mixed hyperlipidemia Qualified Code(s): E78.2 - Mixed hyperlipidemia (5) ASHD (arteriosclerotic heart disease): (6) Diabetes: Qualifiers: Diabetes mellitus type: type 2 Diabetes mellitus penitentiary insulin use: without superintendent terminal use Diabetes mellitus complication status: without complication Qualified Code(s): E11.9 - Type 2 diabetes mellitus without complications (7) COPD (chronic obstructive pulmonary disease): Qualifiers: COPD type: chronic bronchitis Chronic bronchitis type: unspecified Qualified Code(s): J42 - Unspecified chronic bronchitis Plan He is s/p multivessel PCI of mid LAD with 2 stents, Left main artery with 1 stent and left circumflex artery to OM1 with 1 stent. 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 Patient stayed stable hemodynamically. Continue aspirin Plavix Coreg Lipitor He is full code for now Cardiac diet SCD for DVT prophylaxis. Will follow-up cardiology and case management for discharge planning Attestations 2 Medical Necessity Statement*: He needs continued hospitalization for cardiac monitoring post multivessel PCI. Time Spent in Patient Care: 20 minutes Coding Level of Care Code Acute Code for [facility] Fwd Diagnoses Non-ST elevated myocardial infarction (non-STEMI) I21.4 Chest pain R07.9 Essential hypertension I10 Hypertension type: essential hypertension Mixed hyperlipidemia E78.2 Hyperlipidemia type: mixed hyperlipidemia ASHD (arteriosclerotic heart disease) I25.10 Type 2 diabetes mellitus without complication, without long-term current use of insulin E11.9 Diabetes mellitus type: type 2 Diabetes mellitus superintendent terminal insulin use: without superintendent terminal use Diabetes mellitus complication status: without complication Chronic bronchitis, unspecified chronic bronchitis type J42 COPD type: chronic bronchitis Chronic bronchitis type: unspecified Time Spent (min) 20
[2023-07-16 16:43] LABS: Glucose Point of Care 139 mg/dL (70-110)
[2023-07-16] MEDS: temazepam 15 mg Capsule PO (20:02)
[2023-07-16 21:21] LABS: Glucose Point of Care 147 mg/dL (70-110)
[2023-07-17] VITALS (28 sets, daily range): BP systolic 75–135; BP diastolic 46–94; PULSE 63–93; RESP 14–23; TEMP 36.6–36.8; O2SAT 93–97
[2023-07-17] MEDS: carvedilol 3.125 mg Tablet PO ×2 (05:09→17:39)
--- NOTE | 2023-07-17 07:14 | P.PN_ITS ---
Subjective 2 Subjective: Patient doing well. no chest pain. Vitals/I&O/Wt Last Vital Signs Temp 98.3 F 07/17/23 04:00 Pulse 69 07/17/23 06:00 Resp 18 07/17/23 04:00 BP 85/47 07/17/23 04:00 Pulse Ox 97 07/17/23 04:00 O2 Del Method Nasal Cannula 07/17/23 04:00 O2 Flow Rate 2 07/17/23 04:00 07/16/23 07/17/23 07/17/23 22:59 06:59 14:59 Intake Total 100 / 700 250 / 950 Output Total 1000 / 1000 1000 / 2000 Balance -900 / -300 -750 / -1050 Weight last 48 hrs Weight 149 lb 14.4 oz Weight 153 lb Physical Exam 2 Narrative: GENERAL: Patient is alert, awake and oriented x3. [] NECK: No jugular vein distension. [] HEENT: No cyanosis. No icterus. No pallor. [] HEART: Regular S1 and S2. No murmur, rub or gallop. [] LUNGS: Clear to auscultate bilaterally. [] CENTRAL NERVOUS SYSTEM: Grossly nonfocal. [] EXTREMITIES: Lower extremities with 1+ edema bilaterally. Urinary Catheter Management: Moura: Cath Placed During This Visit: yes, but has since been removed by the nurse Reason for Continuing Indwelling Catheter: Accurate Measurement of Urinary Output in Critically Ill Patients Urinary Catheter Date of Insertion: 07/15/23 Date Urinary Catheter Removed: 07/17/23 Time Urinary Catheter Discontinued: 05:34 Data 07/17/23 07:43 07/18/23 03:13 A&P Assessment and plan (1) Non-ST elevated myocardial infarction (non-STEMI): (2) Chest pain: (3) Hypertension: Qualifiers: Hypertension type: essential hypertension Qualified Code(s): I10 - Essential (primary) hypertension (4) Hyperlipidemia: Qualifiers: Hyperlipidemia type: mixed hyperlipidemia Qualified Code(s): E78.2 - Mixed hyperlipidemia (5) ASHD (arteriosclerotic heart disease): (6) Diabetes: Qualifiers: Diabetes mellitus type: type 2 Diabetes mellitus terminal worker insulin use: without senior living use Diabetes mellitus complication status: without complication Qualified Code(s): E11.9 - Type 2 diabetes mellitus without complications (7) COPD (chronic obstructive pulmonary disease): Qualifiers: COPD type: chronic bronchitis Chronic bronchitis type: unspecified Qualified Code(s): J42 - Unspecified chronic bronchitis Plan Patient is overall doing well. No chest pain. Will continue with dual antiplatelet therapy with aspirin and Plavix. Will repeat echocardiogram to reassess LV systolic function for need for LifeVest. Continue Coreg Thank you for involving us with care of this patient. We will continue to follow. Please call with questions. Attestations 2 Medical Necessity Statement*: Care expected to cross 2 midnights. Coding Level of Care Code Acute Code for g Fwd Diagnoses Non-ST elevated myocardial infarction (non-STEMI) I21.4 Chest pain R07.9 Essential hypertension I10 Hypertension type: essential hypertension Mixed hyperlipidemia E78.2 Hyperlipidemia type: mixed hyperlipidemia ASHD (arteriosclerotic heart disease) I25.10 Type 2 diabetes mellitus without complication, without long-term current use of insulin E11.9 Diabetes mellitus type: type 2 Diabetes mellitus senior living insulin use: without senior living use Diabetes mellitus complication status: without complication Chronic bronchitis, unspecified chronic bronchitis type J42 COPD type: chronic bronchitis Chronic bronchitis type: unspecified
[2023-07-17 07:50] LABS: Basophils % 0.4 %; Eosinophils % 0.3 %; Lymphocytes # 1.5 10^3/uL (0.8-4.8); Lymphocytes % 15.2 %; Mean Corpuscular HGB Conc 34.7 g/dL (30-55); Mean Corpuscular Hemoglobin 35.7 pg (27-33); Mean Platelet Volume 9.3 fL (7.4-10.4); Monocytes % 9.5 %; Neutrophils # 7.52 10^3/uL (1.8-7.7); Neutrophils % 74.1 %; Nucleated Red Blood Cells % 0 %; Platelet Count 169 10^3/cmm (157-399); Red Blood Count 4.37 10^6/uL (3.85-5.65); Red Cell Distribution Width 13.1 % (12.1-15.1); White Blood Count 10.14 10^3/uL (3.29-11.43)
[2023-07-17 08:10] LABS: Alanine Aminotransferase 43 U/L (0-41); Albumin Level 3.2 g/dL (3.5-5.2); Alkaline Phosphatase 49 U/L (40-130); Anion Gap 11.3 (5-19); Aspartate Amino Transferase 107 U/L (0-40); Blood Urea Nitrogen 13 mg/dL (6-20); Calcium 8.2 mg/dL (8.5-10.5); Carbon Dioxide 28 mmol/L (22-29); Chloride 96 mmol/L (98-107); Creatinine Clr Calc Pharmacy 72.1094; Globulin 3.3 g/dL (1.3-4.6); Glomerular Filtration Rate 76.5 mL/min (90-130); Glucose 144 mg/dL (65-115); Osmolality Calculated 275 mOsm/kg (285-295); Potassium 4.3 mmol/L (3.5-5.1); Sodium 131 mmol/L (136-145); Total Bilirubin 1.5 mg/dL (0.15-1.2); Total Protein 6.5 g/dL (6.6-8.7)
[2023-07-17] MEDS: budesonide 0.5 mg/2 mL Neb INHALATION ×2 (08:12→19:44)
[2023-07-17] MEDS: ipratropium-albuterol 3 mL Neb INHALATION (08:12)
[2023-07-17] MEDS: atorvastatin 40 mg Tablet 80 MG PO (11:24)
[2023-07-17] MEDS: pantoprazole DR 40 mg Tablet PO ×2 (11:24→17:39)
[2023-07-17] MEDS: clopidogrel 75 mg Tablet PO (11:24)
[2023-07-17] MEDS: aspirin 81 mg EC Tablet PO (11:25)
[2023-07-17 11:48] LABS: Glucose Point of Care 140 mg/dL (70-110)
--- NOTE | 2023-07-17 13:27 | PM.PN ---
Subjective Subjective: No acute overnight events noted Medications: Reviewed: Yes Vitals/I&O/Wt Last Vital Signs Temp 97.9 F 07/17/23 11:00 Pulse 93 07/17/23 12:00 Resp 16 07/17/23 12:00 BP 135/94 07/17/23 12:00 Pulse Ox 95 07/17/23 12:00 O2 Del Method Nasal Cannula 07/17/23 11:00 O2 Flow Rate 2 07/17/23 11:00 07/16/23 07/17/23 07/17/23 22:59 06:59 14:59 Intake Total 100 / 700 250 / 950 240 / 240 Output Total 1000 / 1000 1000 / 2000 Balance -900 / -300 -750 / -1050 240 / 240 Weight last 48 hrs Weight 67.993 kg Weight 69.4 kg Physical Exam Narrative: GENERAL: Patient is alert, awake unable to assess orientation due to being deaf and nonverbal [] NECK: No jugular vein distension. [] HEENT: No cyanosis. No icterus. No pallor. [] HEART: Regular S1 and S2. No murmur, rub or gallop. LUNGS: Clear to auscultate bilaterally. [] CENTRAL NERVOUS SYSTEM: Grossly nonfocal. [] EXTREMITIES: Lower extremities with 1+ edema bilaterally. Urinary Catheter Management: Moura: Cath Placed During This Visit: yes, but has since been removed by the nurse Reason for Continuing Indwelling Catheter: Accurate Measurement of Urinary Output in Critically Ill Patients Urinary Catheter Date of Insertion: 07/15/23 Date Urinary Catheter Removed: 07/17/23 Time Urinary Catheter Discontinued: 05:34 Data 07/17/23 07:43 07/17/23 07:43 A&P Assessment and plan (1) Non-ST elevated myocardial infarction (non-STEMI): (2) Chest pain: (3) Hypertension: Qualifiers: Hypertension type: essential hypertension Qualified Code(s): I10 - Essential (primary) hypertension (4) Hyperlipidemia: Qualifiers: Hyperlipidemia type: mixed hyperlipidemia Qualified Code(s): E78.2 - Mixed hyperlipidemia (5) ASHD (arteriosclerotic heart disease): (6) Diabetes: Qualifiers: Diabetes mellitus type: type 2 Diabetes mellitus long-term insulin use: without ad terminal makeup operator use Diabetes mellitus complication status: without complication Qualified Code(s): E11.9 - Type 2 diabetes mellitus without complications (7) COPD (chronic obstructive pulmonary disease): Qualifiers: COPD type: chronic bronchitis Chronic bronchitis type: unspecified Qualified Code(s): J42 - Unspecified chronic bronchitis Plan He is s/p multivessel PCI of mid LAD with 2 stents, Left main artery with 1 stent and left circumflex artery to OM1 with 1 stent. 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 Patient stayed stable hemodynamically. plan for repeat ECHO to evaluate for ejection fraction improvement. Continue aspirin Plavix Coreg Lipitor will transfer to [facility]. He is full code for now Cardiac diet SCD for DVT prophylaxis. Attestations Medical Necessity Statement*: He needs continued hospitalization for repeat 2D echo with contrast to evaluate for improvement in ejection fraction. Time Spent in Patient Care: 15 minutes Coding Level of Care Code Acute Code for g Fwd Diagnoses Non-ST elevated myocardial infarction (non-STEMI) I21.4 Chest pain R07.9 Essential hypertension I10 Hypertension type: essential hypertension Mixed hyperlipidemia E78.2 Hyperlipidemia type: mixed hyperlipidemia ASHD (arteriosclerotic heart disease) I25.10 Type 2 diabetes mellitus without complication, without long-term current use of insulin E11.9 Diabetes mellitus type: type 2 Diabetes mellitus ad terminal makeup operator insulin use: without long-term use Diabetes mellitus complication status: without complication Chronic bronchitis, unspecified chronic bronchitis type J42 COPD type: chronic bronchitis Chronic bronchitis type: unspecified Time Spent (min) 15
--- NOTE | 2023-07-17 17:53 | USCV_ITS ---
Dalton Lo Age: 58 Gender: M : 1965 Exam Date: 07/17/2023 23:49 Ordering Phys: Technologist: HENNY [place] [facility] [place]: EF Assessment. BP: 110 / 68 HR: 63 Rhythm: Sinus Technical Quality: Good MEASUREMENTS (Male / Female) Normal Values 2D ECHO LV Diastolic Diameter PLAX 4.7 cm 4.2 - 5.9 / 3.9 - 5.3 cm IVS Diastolic Thickness 1.3 cm 0.6 - 1.0 / 0.6 - 0.9 cm IVS Systolic Thickness 1.4 cm LVPW Diastolic Thickness 1.2 cm 0.6 - 1.0 / 0.6 - 0.9 cm LVPW Systolic Thickness 1.2 cm LVOT Diameter 1.8 cm LV Ejection Fraction 2D Teich 24.1 % LV Ejection Fraction MOD 2C 49.2 % LV Ejection Fraction 2C AL 49.1 % LA Diameter 3.7 cm LA Sys Volume AL 50.5 cm cubed Aorta at Sinotubular Diameter 3.1 cm IVC Diameter 1.3 cm M-MODE LA Ao Ratio MM 1.2 AV Cusp Separation MM 2.0 cm DOPPLER AV Peak Velocity 116.0 cm/s LVOT Peak Velocity 66.0 cm/s AV Area Cont Eq vti 1.7 cm squared AV Area Cont Eq pk 1.5 cm squared MV Area PHT 2.2 cm squared Mitral E to A Ratio 1.2 TR Peak Velocity 200.0 cm/s TR Peak Gradient 16.0 mmHg TV Peak E Velocity 45.0 cm/s Right Atrial Pressure 3.0 mmHg Pulmonary Artery Systolic Pressu 19.0 mmHg PV Peak Velocity 78.0 cm/s FINDINGS Left Ventricle Left ventricle is normal size. LV systolic function is mild to moderately reduced with EF of 40 to 45%. Mild to moderate global hypokinesis. Right Ventricle Normal in size and function Right Atrium Normal in size Left Atrium Normal in size Mitral Valve Structurally normal valve. Mild mitral regurgitation Aortic Valve Aortic valve is thickened. Mild aortic regurgitation. Tricuspid Valve Insufficient TR jet to evaluate RVSP. Pulmonic Valve Not well visualized Pericardium Normal Aorta Normal in size IVC Appears to be normal CONCLUSIONS LV systolic function is normal mild to moderately reduced with EF of 40 to 45%. Mild mitral regurgitation Mild aortic regurgitation Compared to prior echocardiogram from 07/15/2023, LV systolic function appears to have improved. Rich Jenkins MD (Electronically Signed) Final Date: 21 July 2023 10:21 S
[2023-07-17 20:02] LABS: Glucose Point of Care 110 mg/dL (70-110)
[2023-07-18] VITALS (20 sets, daily range): BP systolic 102–134; BP diastolic 58–80; PULSE 60–81; RESP 13–20; TEMP 36.9; O2SAT 92–96
[2023-07-18 04:25] LABS: Anion Gap 15.1 (5-19); Blood Urea Nitrogen 17 mg/dL (6-20); Calcium 8.8 mg/dL (8.5-10.5); Carbon Dioxide 25 mmol/L (22-29); Chloride 99 mmol/L (98-107); Creatinine Clr Calc Pharmacy 80.1215; Glomerular Filtration Rate 86.4 mL/min (90-130); Glucose 133 mg/dL (65-115); Osmolality Calculated 283 mOsm/kg (285-295); Potassium 4.1 mmol/L (3.5-5.1); Sodium 135 mmol/L (136-145)
[2023-07-18] MEDS: ipratropium-albuterol 3 mL Neb INHALATION (08:24)
[2023-07-18] MEDS: budesonide 0.5 mg/2 mL Neb INHALATION (08:24)
[2023-07-18] MEDS: atorvastatin 40 mg Tablet 80 MG PO (09:11)
[2023-07-18] MEDS: aspirin 81 mg EC Tablet PO (09:12)
[2023-07-18] MEDS: carvedilol 3.125 mg Tablet PO (09:12)
[2023-07-18] MEDS: pantoprazole DR 40 mg Tablet PO (09:12)
[2023-07-18] MEDS: clopidogrel 75 mg Tablet PO (09:12)
[2023-07-18] MEDS: insulin lispro 100 unit/1 mL SUBCUT ×2 (09:12→12:20)
--- NOTE | 2023-07-18 09:13 | PM.PN ---
Subjective Subjective: Patient is doing well. No chest pain. Vitals/I&O/Wt Last Vital Signs Temp 97.9 F 07/17/23 11:00 Pulse 81 07/18/23 08:44 Resp 15 07/18/23 08:24 BP 114/70 07/18/23 06:16 Pulse Ox 92 07/18/23 08:33 O2 Del Method Room Air 07/18/23 08:33 O2 Flow Rate 2 07/18/23 06:16 07/17/23 07/18/23 07/18/23 22:59 06:59 14:59 Intake Total 500 / 740 Output Total 450 / 450 300 / 750 Balance 50 / 290 -300 / -10 Weight last 48 hrs Weight 148 lb 12.8 oz Weight 149 lb 14.4 oz Physical Exam Narrative: GENERAL: Patient is alert, awake and oriented x3. [] NECK: No jugular vein distension. [] HEENT: No cyanosis. No icterus. No pallor. [] HEART: Regular S1 and S2. No murmur, rub or gallop. [] LUNGS: Clear to auscultate bilaterally. [] CENTRAL NERVOUS SYSTEM: Grossly nonfocal. [] EXTREMITIES: Lower extremities with 1+ edema bilaterally. Urinary Catheter Management: Moura: Cath Placed During This Visit: yes, but has since been removed by the nurse Reason for Continuing Indwelling Catheter: Accurate Measurement of Urinary Output in Critically Ill Patients Urinary Catheter Date of Insertion: 07/15/23 Date Urinary Catheter Removed: 07/17/23 Time Urinary Catheter Discontinued: 05:34 Data 07/17/23 07:43 07/18/23 03:13 A&P Assessment and plan (1) Non-ST elevated myocardial infarction (non-STEMI): (2) Chest pain: (3) Hypertension: Qualifiers: Hypertension type: essential hypertension Qualified Code(s): I10 - Essential (primary) hypertension (4) Hyperlipidemia: Qualifiers: Hyperlipidemia type: mixed hyperlipidemia Qualified Code(s): E78.2 - Mixed hyperlipidemia (5) ASHD (arteriosclerotic heart disease): (6) Diabetes: Qualifiers: Diabetes mellitus type: type 2 Diabetes mellitus extermination inspector insulin use: without senior care use Diabetes mellitus complication status: without complication Qualified Code(s): E11.9 - Type 2 diabetes mellitus without complications (7) COPD (chronic obstructive pulmonary disease): Qualifiers: COPD type: chronic bronchitis Chronic bronchitis type: unspecified Qualified Code(s): J42 - Unspecified chronic bronchitis Plan Patient is doing well. Continue dual antiplatelet therapy. ECHO shows significant improvement in EF from prior echocardiogram. Thank you for involving us with care of this patient. Patient is stable to be discharged from cardiac standpoint. Please call with questions. Attestations Medical Necessity Statement*: Care expected to cross 2 midnights. Coding Level of Care Code Acute Code for [facility] Diagnoses Non-ST elevated myocardial infarction (non-STEMI) I21.4 Chest pain R07.9 Essential hypertension I10 Hypertension type: essential hypertension Mixed hyperlipidemia E78.2 Hyperlipidemia type: mixed hyperlipidemia ASHD (arteriosclerotic heart disease) I25.10 Type 2 diabetes mellitus without complication, without long-term current use of insulin E11.9 Diabetes mellitus type: type 2 Diabetes mellitus extermination inspector insulin use: without extermination inspector use Diabetes mellitus complication status: without complication Chronic bronchitis, unspecified chronic bronchitis type J42 COPD type: chronic bronchitis Chronic bronchitis type: unspecified
--- NOTE | 2023-07-18 11:12 | P.DS_ITS ---
Discharge Providers Date of Admission: 07/15/23 00:46 Date of Discharge: July 18, 2023 Attending Provider at Admission: Andrea Geiger MD Attending Provider at Discharge: Nida Henderson MD Consults: cardiology Primary Care Provider: Minh Fay DO Diagnoses at Discharge Discharge Diagnosis (1) Non-ST elevated myocardial infarction (non-STEMI): Status: Acute (2) Chest pain: Status: Acute (3) Hypertension: Status: Acute Qualifiers: Hypertension type: essential hypertension Qualified Code(s): I10 - Essential (primary) hypertension (4) Hyperlipidemia: Status: Acute Qualifiers: Hyperlipidemia type: mixed hyperlipidemia Qualified Code(s): E78.2 - Mixed hyperlipidemia (5) ASHD (arteriosclerotic heart disease): Status: Acute (6) Diabetes: Status: Acute Qualifiers: Diabetes mellitus type: type 2 Diabetes mellitus termite control representative insulin use: without termite control representative use Diabetes mellitus complication status: without complication Qualified Code(s): E11.9 - Type 2 diabetes mellitus without complications (7) COPD (chronic obstructive pulmonary disease): Status: Acute Qualifiers: COPD type: chronic bronchitis Chronic bronchitis type: unspecified Qualified Code(s): J42 - Unspecified chronic bronchitis Reason for Visit Reason for Visit: SOB Brief History: Dalton Lo is a 58 year old male with a past medical history of CAD, hypertension, type 2 diabetes mellitus, history of being deaf/mute, who according to family stopped taking his medications for the last few months, presents to [facility] for chest pain. Patient is nonverbal, but he has been indicating to family members at he has been having chest discomfort, and that he is feels short of breath, no falls, no injuries, no recent travel, denies any calf pain, no calf swelling. He is physically active and takes care of all his chores. Hospital Course Hospital Course Patient underwent coronary angiogram that showed severe distal left main artery stenosis. Critical mid LAD stenosis, critical left circumflex artery stenosis. He underwent multivessel PCI of mid LAD with 2 stents, Left main artery with 1 stent and left circumflex artery to OM1 with 1 stent. 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 Patient stayed stable hemodynamically. He is doing well and ready to be discharged home. Physical Exam Narrative: GENERAL: Patient is alert, awake unable to assess orientation due to being deaf and nonverbal [] NECK: No jugular vein distension. [] HEENT: No cyanosis. No icterus. No pallor. [] HEART: Regular S1 and S2. No murmur, rub or gallop. LUNGS: Clear to auscultate bilaterally. [] CENTRAL NERVOUS SYSTEM: Grossly nonfocal. [] EXTREMITIES: no edema noted. Urinary Catheter Management: Moura: Cath Placed During This Visit: yes, but has since been removed by the nurse Reason for Continuing Indwelling Catheter: Accurate Measurement of Urinary Output in Critically Ill Patients Urinary Catheter Date of Insertion: 07/15/23 Date Urinary Catheter Removed: 07/17/23 Time Urinary Catheter Discontinued: 05:34 Discharge Data Studies Completed and Pending Completed Studies During Hospitalization Category Date Time Status XR chest 1V portable [id number] Stat Exams 07/14/23 21:32 Completed CV ankle brachial index [id number] Routine Ultrasound 07/15/23 13:03 Completed CV. echo complete* [id number] Stat Ultrasound 07/15/23 01:14 Completed CV. echo limited [id number] Routine Ultrasound 07/15/23 13:55 Completed Pending at discharge Category Date Time Status SALES ATTENDANT request for service Routine Exams 07/15/23 07:22 Taken Sestamibi Stress Test Request Routine Exams 07/16/23 06:00 Stop Req CV. echo complete* [id number] Routine Ultrasound 07/17/23 17:53 Taken Radiology Impressions Chest X-Ray 07/14/23 21:32 IMPRESSION: No acute cardiopulmonary disease. Laboratory Results WBC 10.14 10^3/uL (3.29-11.43) 07/17/23 07:43 RBC 4.37 10^6/uL (3.85-5.65) 07/17/23 07:43 Hgb 15.60 g/dL (11.27-16.99) 07/17/23 07:43 Hct 45.0 % (37-53) 07/17/23 07:43 MCV 103.0 fl (82-101) H 07/17/23 07:43 MCH 35.7 pg (27-33) H 07/17/23 07:43 MCHC 34.7 g/dL (30-55) 07/17/23 07:43 RDW 13.1 % (12.1-15.1) 07/17/23 07:43 Plt Count 169 10^3/cmm (157-399) 07/17/23 07:43 MPV 9.3 fL (7.4-10.4) 07/17/23 07:43 Neut % (Auto) 74.1 % 07/17/23 07:43 Lymph % (Auto) 15.2 % 07/17/23 07:43 [place] % (Auto) 9.5 % 07/17/23 07:43 Eos % (Auto) 0.3 % 07/17/23 07:43 Baso % (Auto) 0.4 % 07/17/23 07:43 Neut # (Auto) 7.52 10^3/uL (1.8-7.7) 07/17/23 07:43 Lymph # (Auto) 1.5 10^3/uL (0.8-4.8) 07/17/23 07:43 [place] # (Auto) 1.0 10^3/uL (0.2-0.9) H 07/17/23 07:43 Eos # (Auto) 0.0 10^3/uL (0.0-0.8) 07/17/23 07:43 Baso # (Auto) 0.0 10^3/uL (0.0-0.1) 07/17/23 07:43 Nucleated RBC % (auto) 0 % 07/17/23 07:43 Nucleated RBCs # 0.0 /100WBC 07/17/23 07:43 APTT 26.3 SECONDS (23.9-36.7) D 07/15/23 19:42 D-Dimer 0.48 ug/mLFEU (0-0.59) 07/14/23 21:50 Specimen Type Arterial 07/15/23 14:33 Sample Site Radial, left 07/15/23 14:33 ABG pH 7.29 (7.35-7.45) L 07/15/23 14:33 ABG pCO2 44.2 mmHg (35-45) 07/15/23 14:33 ABG pO2 69.9 mmHg (80.0-100.0) L 07/15/23 14:33 ABG PO2/FiO2 Ratio 0 07/15/23 14:33 ABG HCO3 21.4 mmol/L (22-26) L 07/15/23 14:33 ABG O2 Saturation 93.0 07/15/23 14:33 ABG Base Excess -5.2 mmol/L (-2.0-2.0) L 07/15/23 14:33 Fadi Test Pos 07/15/23 14:33 A-a O2 Gradient 25.4 mmHg (5-10) H 07/15/23 14:33 Hematocrit 64.7 % (42-52) H 07/15/23 14:33 Hgb O2 Saturation 92.4 % (95-100) L 07/15/23 14:33 Carboxyhemoglobin 0.5 %THgb (0.4-20.1) 07/15/23 14:33 Methemoglobin 0.2 % (0.4-1.5) L 07/15/23 14:33 Total Hemoglobin 21.1 g/dL (14-18) H 07/15/23 14:33 Sodium 133.0 mmol/L (131-143) 07/15/23 14:33 Potassium 5.7 mmol/L (3.5-5.0) H 07/15/23 14:33 Glucose 228.0 mg/dL (70-115) H 07/15/23 14:33 Ionized Calcium 1.1 mmol/L (1.1-1.4) 07/15/23 14:33 O2 Delivery Device Oxy mask 07/15/23 14:33 O2 Liters/Min 5.0 % 07/15/23 14:33 FiO2 45.0 % 07/15/23 14:33 Pilot Supervisor ID Cak 07/15/23 14:33 Sodium 135 mmol/L (136-145) L 07/18/23 03:13 Potassium 4.1 mmol/L (3.5-5.1) 07/18/23 03:13 Chloride 99 mmol/L (98-107) 07/18/23 03:13 Carbon Dioxide 25 mmol/L (22-29) 07/18/23 03:13 Anion Gap 15.1 (5-19) 07/18/23 03:13 BUN 17 mg/dL (6-20) 07/18/23 03:13 Creatinine 0.9 mg/dL (0.7-1.2) 07/18/23 03:13 GFR Calculation 86.4 mL/min (90-130) L 07/18/23 03:13 Glucose 133 mg/dL (65-115) H 07/18/23 03:13 POC Glucose 110 mg/dL (70-110) 07/17/23 17:40 Estimat Average Glucose 126 07/15/23 Unknown Hemoglobin A1c 6.0 % (4.0-6.0) 07/15/23 Unknown Calculated Osmolality 283 mOsm/kg (285-295) L 07/18/23 03:13 Lactic Acid 2.7 mmol/L (0.5-2.2) H 07/15/23 01:26 Lactic Acid (Sepsis) 1.7 mmol/L (0.5-2.2) 07/15/23 04:13 Lactate 2.4 mmol/L (0.5-2.2) H 07/16/23 07:43 Calcium 8.8 mg/dL (8.5-10.5) 07/18/23 03:13 Magnesium 2.0 mg/dL (1.7-2.3) 07/18/23 03:13 Total Bilirubin 1.5 mg/dL (0.15-1.2) H 07/17/23 07:43 AST 107 U/L (0-40) H 07/17/23 07:43 ALT 43 U/L (0-41) H 07/17/23 07:43 Alkaline Phosphatase 49 U/L (40-130) 07/17/23 07:43 Creatine Kinase 216 U/L (39-308) 07/14/23 21:43 Troponin T Baseline 116 ng/L (0-15) H* 07/15/23 06:06 Troponin T 120 Minute 92.33 ng/L (0-15) H 07/14/23 23:29 Delta Troponin T 30.33 ABS# (0-10) H* 07/14/23 23:29 Troponin T Hi Sens 6Hr 126.0 ng/L (0-15) H 07/15/23 04:13 Troponin T Hi Sens 6Hr Delta 64.0 ng/L (0-12) H* 07/15/23 04:13 NT-Pro-B Natriuret Pep 250 pg/mL (0-125) H 07/14/23 21:43 Total Protein 6.5 g/dL (6.6-8.7) L 07/17/23 07:43 Albumin 3.2 g/dL (3.5-5.2) L 07/17/23 07:43 Globulin 3.3 g/dL (1.3-4.6) 07/17/23 07:43 Triglycerides 273 mg/dL (0-150) H 07/15/23 Unknown Cholesterol 284 mg/dL (0-200) H 07/15/23 Unknown LDL Cholesterol, Calc 188 mg/dL (50-129) H 07/15/23 Unknown HDL Cholesterol 41 mg/dL (60-100) L 07/15/23 Unknown LDL/HDL Ratio 4.59 RATIO (0.00-3.22) H 07/15/23 Unknown Cholesterol/HDL Ratio 6.93 mg/dL (1.0-5.00) H 07/15/23 Unknown Lipase 45 U/L (13-60) 07/14/23 21:43 TSH 3.85 uIU/mL (0.27-4.20) 07/15/23 Unknown Urine Color Light yellow (Yellow) 07/15/23 04:00 Urine Appearance Clear (CLEAR) 07/15/23 04:00 Urine pH 5 (5-7) 07/15/23 04:00 Ur Specific Vida 1.010 (1.005-1.030) 07/15/23 04:00 Urine Protein Neg (Negative) 07/15/23 04:00 Urine Glucose (UA) Norm (Normal) 07/15/23 04:00 Urine Ketones Negative (Negative) 07/15/23 04:00 Urine Blood Neg (Negative) 07/15/23 04:00 Urine Nitrate Negative (Negative) 07/15/23 04:00 Urine Bilirubin Neg (Negative) 07/15/23 04:00 Urine Urobilinogen Neg mg/dL (Negative) 07/15/23 04:00 Ur Leukocyte Esterase Negative (Negative) 07/15/23 04:00 Urine Opiates Screen Positive ng/mL (Negative) H 07/15/23 04:00 Ur Barbiturates Screen Negative ng/mL (Negative) 07/15/23 04:00 Ur Phencyclidine Scrn Negative ng/mL (Negative) 07/15/23 04:00 Ur Amphetamines Screen Negative ng/mL (Negative) 07/15/23 04:00 U Benzodiazepines Scrn Negative ng/mL (Negative) 07/15/23 04:00 Urine Cocaine Screen Negative ng/mL (Negative) 07/15/23 04:00 U Marijuana (THC) Screen Positive ng/mL (Negative) H 07/15/23 04:00 Ethyl Alcohol 107 mg/dL (0-10) H 07/14/23 21:43 Vitals Last Vital Signs Temp 97.9 F 07/17/23 11:00 Pulse 76 07/18/23 10:00 Resp 19 H 07/18/23 10:00 BP 134/79 07/18/23 07:00 Pulse Ox 93 07/18/23 10:00 O2 Del Method Room Air 07/18/23 08:33 O2 Flow Rate 2 07/18/23 06:16 Discharge Plan Discharge Patient Disposition: Home Condition: Stable Prescriptions: New atorvastatin 40 mg Tablet 80 mg PO DAILY 30 Days Qty: 30 0RF clopidogrel 75 mg Tablet 75 mg PO DAILY 30 Days Qty: 30 0RF aspirin 81 mg Tablet,Delayed Release (Dr/Ec) 81 mg PO DAILY 30 Days Qty: 30 0RF carvedilol 3.125 mg Tablet 3.125 mg PO Q12H 30 Days Qty: 60 0RF pantoprazole 40 mg Tablet,Delayed Release (Dr/Ec) 40 mg PO DAILY 30 Days Qty: 30 0RF Continued (DME) blood-glucose meter Kit See Rx Instructions .Route Qty: 1 0RF Rx Instructions: As directed omega-3 fatty acids 1,000 mg Capsule 1,000 mg PO DAILY Discharge Orders: Discharge Order (Routine); Ordered 07/18/23 Ordered By: Nida Henderson Referrals: Minh Fay DO [Primary Care Provider] - Discharge Diet: Cardiac Discharge Activity: Increase activity as tolerated Patient Instructions: Heart Attack (DC), Coronary Angioplasty (DC), Heart Healthy Diet (DC), Using Oxygen at Home (DC), Coronary Intravascular Stent Placement (DC), Hypertension in the Older Adult (DC), COPD Stoplight, Chest Pain Stoplight, Opioid Safety, Post Angiogram Home Care Instructions, Pain Management, Post Heart Attack Stoplight Activity Restrictions/Additional Instructions: follow up with GRACIELA you in 1 week. Discharge Attestations Time Spent in Discharge Care*: less than 30 min Quality Metrics Clinical Quality Measures [ No reported AMI, CVA or VTE this stay] Coding Level of Care Code Acute Code for g Fwd Diagnoses Non-ST elevated myocardial infarction (non-STEMI) I21.4 Chest pain R07.9 Essential hypertension I10 Hypertension type: essential hypertension Mixed hyperlipidemia E78.2 Hyperlipidemia type: mixed hyperlipidemia ASHD (arteriosclerotic heart disease) I25.10 Type 2 diabetes mellitus without complication, without long-term current use of insulin E11.9 Diabetes mellitus type: type 2 Diabetes mellitus termite control representative insulin use: without shelter use Diabetes mellitus complication status: without complication Chronic bronchitis, unspecified chronic bronchitis type J42 COPD type: chronic bronchitis Chronic bronchitis type: unspecified Time Spent (min) 20
[2023-07-18 11:15] LABS: Glucose Point of Care 146 mg/dL (70-110)
[2023-07-18 11:54] LABS: Glucose Point of Care 202 mg/dL (70-110)
--- NOTE | 2023-07-18 12:51 | PC.RESP ---
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
--- NOTE | 2023-07-18 13:59 | PC.NURSE ---
Discharge Note Patient discharged to [home] via [w/c to POV] accompanied by [family]. Discharge instructions reviewed with patient and/or sales promotion representative. Mobile pharmacy medications and/or prescriptions provided. Belongings/home medications returned.
== END 2023-07-18 13:51 | disposition home or self-care (01) | DRG 324 ==
LOC: ER 07-15 01:14 → ICU 07-15 03:00
PROVIDERS: Internal Medicine; Admitting Provider Family Medicine; Emergency Provider Emergency Medicine; PCP Family Medicine; Visit Provider Internal Medicine
PROC: 027237Z Dilation of Coronary Artery, Three Arteries with Four or More Drug-eluting Intraluminal Devices, Percutaneous Approach (ICD-10-PCS; principal; 2023-07-15 08:00)
PROC: 027237Z Dilation of Coronary Artery, Three Arteries with Four or More Drug-eluting Intraluminal Devices, Percutaneous Approach (ICD-10-PCS; 2023-07-15 08:00)
DX: I21.4 Non-ST elevation (NSTEMI) myocardial infarction (principal); I25.110 Atherosclerotic heart disease of native coronary artery with unstable angina pectoris; I10 Essential (primary) hypertension; E11.9 Type 2 diabetes mellitus without complications; H91.3 Deaf nonspeaking, not elsewhere classified; T50.916A Underdosing of multiple unspecified drugs, medicaments and biological substances, initial encounter; J42 Unspecified chronic bronchitis; I65.29 Occlusion and stenosis of unspecified carotid artery; F10.90 Alcohol use, unspecified, uncomplicated; Y90.5 Blood alcohol level of 100-119 mg/100 ml; I25.2 Old myocardial infarction; Z91.128 Patient's intentional underdosing of medication regimen for other reason; Z79.82 Long term (current) use of aspirin; Z79.84 Long term (current) use of oral hypoglycemic drugs; Z79.02 Long term (current) use of antithrombotics/antiplatelets; Z87.891 Personal history of nicotine dependence
CPT/HCPCS: 36415; 36416; 36600; 51702; 71045; 80048; 80051; 80053; 80061; 80306; 80307; 81003; 82330; 82550; 82805; 82962; 83036; 83605; 83690; 83735; 83880; 84443; 84484; 85025; 85347; 85378; 85730; 92978; 93005; 93306; 93308; 93454; 93922; 94640; 94664; 94760; 96372; 96374; 96375; 96376; 99152; 99153; 99285; C1725; C1753; C1769; C1874; C1887; C1894; C9600; C9601; J0360; J1200; J1644; J1650; J1815; J2250; J2270; J2371; J2405; J2704; J3010; J3490; J7030; J7626; Q9967

== ENCOUNTER → 2023-07-31 16:00 | Outpatient (BNVA) | payer MEDICARE, MEDICAID, SELFPAY | PROVIDERS: PCP Nurse Practitioner Family; Visit Provider Nurse Practitioner Family | DX: I25.10 Atherosclerotic heart disease of native coronary artery without angina pectoris (principal) | CPT/HCPCS: 36415; 80048; 99214 ==

== ENCOUNTER → 2023-10-16 06:32 | Outpatient (CLI) | payer MEDICARE, MEDICAID, SELFPAY ==
--- NOTE | 2023-10-16 07:15 | USCV_ITS ---
Dalton Lo Age: 58 Gender: M : 1965 Exam Date: 10/16/2023 07:13 Ordering Phys: Malick Barnes MD ([email or web address]) Technologist: GABRIELA Exam Location: [facility] [place] Indication: Leg Pain Risk Factors: Previous Vascular Surgery: RIGHT LEFT BP: 165.0 / 84.00 BP: 168.0/ 78.00 0 0 Waveform Velocity (cm/s) Velocity (cm/s) Waveform Triphasic 105.5 Iliac Prox 78.7 Triphasic Triphasic 109.7 Iliac Mid 74.4 Triphasic Triphasic 125.2 Iliac Distal 80.6 Triphasic Biphasic 104.0 FORMAL SERVICE WAITER 88.0 Triphasic Biphasic 80.0 SFA Prox 49.0 Triphasic Biphasic 79.0 SFA Mid 25.0 Biphasic Biphasic SFA Dist Monophasic 93.0 22.0 Biphasic 151.0 POP 44.0 Monophasic Biphasic 26.0 SUPERVISOR REFINING 23.0 Monophasic Biphasic 20.0 DPA 32.0 Monophasic 0.4 SURYA 0.7 FINDINGS Resting SURYA 0.4 on the right and 0.7 on the left Doppler waveforms becomes biphasic at the level of the common femoral artery on the right side The Doppler waveforms become monophasic at the level of the popliteal artery on the left side CONCLUSIONS 1, Abnormal resting SURYA bilaterally( 0.4 on the right and 0.7 on the left )suggesting severe peripheral artery disease in the right side and moderate peripheral artery disease on the left side 2. Possible multisegmental disease on the right side and SFA lesion on the left side Consider CTA/peripheral angiogram to better evaluate the arteries, if clinically indicated Dr Allison Gonzalez MD FAC (Electronically Signed) Final Date: 16 October 2023 20:19 S
== END | disposition home or self-care (01) ==
LOC: RAD 06:31
PROVIDERS: PCP Nurse Practitioner Family; Visit Provider Internal Medicine Cardiovascular Disease
DX: I73.9 Peripheral vascular disease, unspecified (principal); I25.10 Atherosclerotic heart disease of native coronary artery without angina pectoris
CPT/HCPCS: 93925; 99214

== ENCOUNTER → 2023-10-25 09:27 | Outpatient (BNVA) | payer MEDICARE, MEDICAID, SELFPAY | PROVIDERS: PCP Nurse Practitioner Family; Visit Provider Nurse Practitioner Family | DX: E11.9 Type 2 diabetes mellitus without complications (principal) | CPT/HCPCS: 83036 ==

== ENCOUNTER 2023-10-30 07:38 | Outpatient (CLI) | payer MEDICARE, MEDICAID, SELFPAY ==
--- NOTE | 2023-10-30 08:00 | CT_ITS ---
WS: [id number] CT ANGIOGRAPHY OF THE ABDOMINAL AORTA WITH RUNOFF TO THE ANKLES HISTORY: leg pain TECHNIQUE: Arterial injection is performed during imaging to evaluate the aorta and runoff vessels to the ankles. MIP and volume rendering imaging has also been performed. All images are reviewed. All C T scans at [facility] use at least one of these dose optimization techniques: automated exposu re control; mA and/or kV adjustment per patient size (includes targeted exams where dose is matched t o clinical indication); or iterative reconstruction. Contrast: Omnipaque 350; 100 mL IV. DLP: 1337.29 mGy.cm COMPARISON: Duplex examination 10/16/2023 Abdominal aorta: Good contrast opacification of the abdominal aorta. No aneurysm. Mild plaque. There is soft soft and calcified plaque. Mild stenosis proximal celiac axis. Plaque in the proximal SMA but no high-grade stenosis. Renal arteries are both patent with mild plaque. RIGHT lower extremity arterial system: Moderate plaque burden continues into the RIGHT common iliac a rtery. There is a focal plaque ulceration in the proximal RIGHT common carotid artery extending media lly. Internal and external iliac arteries are both patent. Common femoral arteries patent. Proximal d eep profound and RIGHT SFA are patent. There is a focal high-grade stenosis in the mid to distal prof unda. Increasing plaque in the SFA towards Marvin's canal. Multifocal high-grade stenosis through Hun ter's canal. Near complete occlusion with successful reconstitution in the popliteal artery. Plaque a t the popliteal artery. Three-vessel runoff is noted to the ankle but the vessels are very small gabrielle mimi. These are best seen on a more delayed imaging that was performed. Towards the ankle the anterior tibial artery is poorly visualized. LEFT lower extremity arterial system: Calcified plaque and soft plaque throughout the common iliac ar keila. 50% stenosis in distal LEFT common iliac artery. Bifurcation is patent. Distal internal iliac a rtery very small caliber. External iliac arteries patent with mild plaque. Bifurcation into the profu nda and SFA is intact with calcified plaque. Mild narrowing of the entire SFA of near 50%. Complete o r near complete occlusion in the mid SFA with attempts at reconstitution. Segment of occlusion measur es approximately 4.4 cm. Plaque at the popliteal artery but no high-grade stenosis or occlusion. Plaq ue noted throughout the anterior tibial artery. The anterior tibial artery is very small caliber with focal areas of occlusion. Very little runoff to the ankle. More robust runoff to the posterior tibia l and peroneal arteries. Chronic emphysema at the lung bases. Mild LEFT ventricle enlargement. Small hiatal hernia. Visceral o rgans are negative on this early phase of enhancement. No GI tract obstruction. No ascites or adenopa thy. Mild anterior wedging of T12. CT/CT angio abd aorta runof [id number] IMPRESSION: 1. Mild diffuse plaque abdominal aorta. No aneurysm. 2. Mild stenosis celiac axis. 3. RIGHT mid to distal deep profound high-grade stenosis. 4. RIGHT SFA toward Marvin's canal multifocal high-grade stenoses. Near comple te occlusion with reconstitution via the popliteal artery. 5. RIGHT three-vessel runoff to the ankle with decreased flow in the anterior tibial artery. 6. Distal LEFT common iliac artery stenosis 50%. 7. LEFT SFA: 4.4 cm segment of complete occlusion mid SFA with reconstitution. 8. Small caliber with areas of occlusion LEFT anterior tibial artery. Better r unoff to the ankle via the posterior tibial and peroneal arteries.
[2023-10-30] MEDS: iohexol 350 mg/mL 500 mL Btl (per mL) IV (08:31)
== END 2023-10-30 07:39 | disposition home or self-care (01) ==
LOC: RAD 07:39
PROVIDERS: PCP Nurse Practitioner Family; Visit Provider Internal Medicine Cardiovascular Disease
DX: M79.606 Pain in leg, unspecified (principal); I25.10 Atherosclerotic heart disease of native coronary artery without angina pectoris; Q25.1 Coarctation of aorta; I70.8 Atherosclerosis of other arteries; J43.8 Other emphysema; I51.7 Cardiomegaly; K44.9 Diaphragmatic hernia without obstruction or gangrene; M48.54XA Collapsed vertebra, not elsewhere classified, thoracic region, initial encounter for fracture
CPT/HCPCS: 75635; Q9967

== ENCOUNTER → 2023-12-23 15:33 | Outpatient (BNVA) | payer MEDICARE, MEDICAID, SELFPAY | PROVIDERS: PCP Nurse Practitioner Family; Visit Provider Internal Medicine Cardiovascular Disease | DX: M79.604 Pain in right leg (principal); M79.605 Pain in left leg; I10 Essential (primary) hypertension; I25.10 Atherosclerotic heart disease of native coronary artery without angina pectoris; I65.21 Occlusion and stenosis of right carotid artery; Z87.891 Personal history of nicotine dependence | CPT/HCPCS: 99213 ==

== ENCOUNTER 2024-01-06 10:57 | Outpatient (CLI) | payer MEDICARE, MEDICAID, SELFPAY ==
[2024-01-06 11:32] LABS: Basophils # 0.1 10^3/uL (0.0-0.1); Basophils % 0.8 %; Eosinophils # 0.2 10^3/uL (0.0-0.8); Eosinophils % 2.5 %; Hematocrit 37.4 % (37-53); Lymphocytes # 1.3 10^3/uL (0.8-4.8); Lymphocytes % 17.1 %; Mean Corpuscular Hemoglobin 33.9 pg (27-33); Mean Corpuscular Volume 96.6 fl (82-101); Mean Platelet Volume 9.3 fL (7.4-10.4); Monocytes # 0.7 10^3/uL (0.2-0.9); Monocytes % 9.3 %; Neutrophils # 5.35 10^3/uL (1.8-7.7); Neutrophils % 69.8 %; Nucleated Red Blood Cells % 0 %; Platelet Count 266 10^3/cmm (157-399); Red Blood Count 3.87 10^6/uL (3.85-5.65); Red Cell Distribution Width 14.9 % (12.1-15.1); White Blood Count 7.66 10^3/uL (3.29-11.43)
[2024-01-06 11:59] LABS: Anion Gap 13.2 (5-19); Blood Urea Nitrogen 16 mg/dL (6-20); Calcium 9.4 mg/dL (8.5-10.5); Carbon Dioxide 30 mmol/L (22-29); Chloride 99 mmol/L (98-107); Glomerular Filtration Rate 98.9 mL/min (90-130); Glucose 101 mg/dL (65-115); Osmolality Calculated 289 mOsm/kg (285-295); Potassium 3.2 mmol/L (3.5-5.1); Sodium 139 mmol/L (136-145)
[2024-01-06 12:04] LABS: Prothrombin Time (Patient) 12.4 Seconds (12.0-15.1)
== END 2024-01-06 10:58 | disposition home or self-care (01) ==
LOC: LAB 10:59
PROVIDERS: PCP Nurse Practitioner Family; Visit Provider Internal Medicine Cardiovascular Disease
DX: I10 Essential (primary) hypertension (principal); M79.605 Pain in left leg; M79.604 Pain in right leg
CPT/HCPCS: 36415; 80048; 85025; 85610

== ENCOUNTER 2024-01-09 06:27 | Outpatient (CLI) | payer MEDICARE, MEDICAID, SELFPAY ==
[2024-01-09] VITALS (33 sets, daily range): BP systolic 120–175; BP diastolic 66–87; PULSE 66–82; RESP 12–22; TEMP 36.8–36.9; O2SAT 89–98; BMI 25.6; BMI 24.5
[2024-01-09] MEDS: diphenhydrAMINE 50 mg Capsule PO (07:30)
--- NOTE | 2024-01-09 07:30 | SUR.PREOP ---
Patient is deaf and does not communicate at all other than hand cues at times with his brother, Avni. He lives with Avni and his sister in law, Na. Avni had medical power of contract attorney. He communicates with the patient. Other than that, Mr. Lo does not communicate.
--- NOTE | 2024-01-09 07:30 | XACV_ITS ---
Ht: 165 cm Wt: 70 kg BSA: 1.80 m2 Any Known Allergies: No known allergies Gender: Male : 1965 Exam Type: Invasive Peripheral Vascular Procedure(s): Procedure Description: Diagnostic procedure Procedure Description: Peripheral Cath Diagnostic Procedure Procedure Description: Abdominal aortic angiography Procedure Description: Lower extremities' angiography Procedure Description: Peripheral vascular Intervention Procedure Description: PV Balloon Procedure Description: Miscellaneous Procedure Description: ACT Exam Priority: Routine [facility], [place]; Abdominal Diagnostic Findings Indication for peripheral angiogram: Lifestyle limiting claudication bilaterally more on the left than the right despite of optimization of medicationsRight common femoral artery approach was adopted using 6 Chadian glide sheath and Seldinger techniqueRim catheter was placed at the renal artery level to obtain aortogramRim catheter was then directed to cannulate left common iliac artery to obtain left-sided unilateral peripheral angiogramAbdominal aortography: Luminal irregularity without aortic aneurysm noted Renal arteries: Bilateral renal arteries were visualized without significant stenosis Rim catheter was then used to cannulate left common iliac artery and peripheral angiogram was obtained Left common iliac artery: Luminal irregularity without significant stenosis Left internal iliac artery: Luminal irregularities without significant stenosis Left external iliac artery: Luminal irregularity without significant stenosis Left common femoral artery: Luminal irregularity without significant stenosis Left SFA: Chronically 100% occluded in the midsegment which reconstitute in the distal segment to form popliteal artery through collaterals, sluggish flow noted.Left popliteal artery: Luminal irregularities without significant stenosis Left tibioperoneal trunk: Luminal irregularities without significant stenosis Left anterior tibial artery: Chronically occluded no flow noted Left peroneal artery appeared to be patent with sluggish flow Left posterior tibial artery visualized in the proximal segment as ran out of contrast. Left profundofemoral artery has luminal irregularity. Lower Extremity Diagnostic Findings Right common iliac artery: Patent with luminal irregularities Right internal iliac artery: Luminal irregularity without significant stenosis Right external iliac artery: Luminal irregularity without significant stenosisRight common femoral artery: Luminal irregularity without significant stenosis Right profundofemoral artery has distal high-grade stenosis Right SFA: Proximal to mid segment has luminal irregularities without significant stenosis. Right popliteal artery has mid high-grade 90% severe stenosis Right tibioperoneal trunk has luminal irregularity without significant stenosisRight peroneal artery has luminal irregularities Right anterior tibial and posterior tibial are not well-visualized probably contrast issue. Lower Extremity Interventional Findings Glidewire was used to cross into left common iliac and into left profundofemoral artery using rim catheter. Long 6 Chadian 45 cm sheath was exchanged with a short 6 Chadian right common femoral sheath, long sheath was placed in left common femoral artery. Using a seeker catheter Glidewire was advanced into left SFA, after somewhat difficulty were able to cross mid left SFA chronically occluded lesion wire was then placed into left peroneal artery Using Taylor [id number] [id number] balloon balloon angioplasty of the mid SFA was performed, it was followed by application of drug-coated lutonix 6.0 x 100 mm balloon. Excellent angiographic result with good flow was noted in SFA, there was no residual stenosis noted.Below the knee two-vessel runoff in the form of left posterior tibial artery and peroneal artery was noted, left posterior tibial artery was traced up to the foot, left anterior tibial artery appeared to be chronically occluded however collaterals from the peroneal artery was noted to fill faintly the anterior tibial.Good posterior tibial pulse was palpable at the end of the case while anterior tibial was dopplerable, foot was appear to be warm moist and pink. Recommendations Continue aspirin statin Plavix and cilostazol. Stage percutaneous angioplasty of the right popliteal artery for lifestyle limiting claudication in 3 to 4 weeks.. Hemodynamic Data Phase:Rest AO : 178.0 / 75.0 ( 113.0 ) @ 10:34:00 AM 188.0 / 76.0 ( 116.0 ) @ 10:44:00 AM 152.0 / 76.0 ( 107.0 ) @ 10:54:00 AM 112.0 / 55.0 ( 78.0 ) @ 11:07:00 AM 120.0 / 58.0 ( 82.0 ) @ 11:21:00 AM 97.0 / 56.0 ( 73.0 ) @ 11:35:00 AM Access Site Site: Right Femoral artery Sheath Size: 6 Fr Hemost... Method: Angio-Seal VIP (St. Atul) Hemost... Success: Successful Procedure Details Findings Procedure Consent Obtained. Admit Source: Out Patient. Pre-Procedure Time Out. Identified patient by full name and date of as verbalized by the patient/guarantor. Does the consent match the physician's order: Yes. Accurate & Complete Informed Consent: Yes. Inpatient/Outpatient History & Physical on Chart: Yes. If H&P is completed, is and addenduem needed: No; If yes, is the addendum complete: N/A. Visualize and Verify Site with Patient/Guarantor: N/A. Relevant Radiology Images available: Yes. The risks, benefits, and alternatives of sedation and/or procedure were discussed by physician. The patient agrees to continue. Procedure started. Correct patient, site and procedure confirmed by cath team. Current diagnosis: Lifestyle limiting claudication, PAD. PERRLA. 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 Lungs clear x 5 lobes. IV Site on Arrival: 20 gauge in the right anticubital. IV Fluids: 0.9% NaCl at KVO. 0 mL infused prior to sleep lab technician. Pre Procedural Pulses: bilateral radial was 2+. Pre Procedural Pulses: bilateral posterior tibial was Doppled. Pre Procedural Pulses: bilateral dorsalis pedis was Doppled. Oxygen started at 2liters/min via nasal canula. bilateral groins was prepped with chloroprep then draped in the usual sterile fashion. Physician notified. Baseline sample Acquired. HR: 88 BPM. Physician arrived. Physician scrubbed in. Immediate Pre-Procedure Time Out. Correct Patient: Yes; Correct Procedure: Yes; Correct Site: Yes; Correct Patient Position: Yes; Correct Supplies: Yes; Dried Flammable Prep: Yes; Blood Products Available: No;. Lidocaine 1% infiltrated to the right groin. Arterial access obtained. A 5Fr UF catheter in over wire. Abdominal aortogram performed in AP @ 10 mL/sec for a total of 30 mL. UF catheter out over standard wire. 6Fr sheath moderatly leaking . Exchanged for new 6fr sheath over standard wire. Glidewire in through Rim catheter. Glidewire advanced to left profunda. Rim catheter out over wire. 6fr short sheath exchanged for 6fr 45cm flexor sheath over glidewire. Left common femoral selected and arteriogram with runoff performed @ 10 mL/sec for a total of 20 mL. Seeker catheter in over glidewire. glidewire and seeker redirected to left SFA. Wire and seeker advanced to distal left anterior tibial artery. Glidewire out. Glidewire in through seeker catheter. Seeker out over glidewire. Balloon inserted over the wire to the left superficial femoral. Inflation number : 1 A AB ARMADA 35 OTW [id number] was prepped and advanced across the Mid Superficial Femoral, Left , then inflated to 6 YUMIKO for 2:02 seconds. Balloon out over wire. Left common femoral selected and arteriogram with runoff performed @ 10 mL/sec for a total of 30 mL. Balloon inserted over the wire to the superficial femoral. Inflation number : 2 A Lutonix DCB 6.0 X 100mm was prepped and advanced across the Mid Superficial Femoral, Left , then inflated to 6 YUMIKO for 2:00 seconds. Balloon out over wire. ACT drawn. Results 177 seconds. Therapeutic limits - pre-heparin administration 90-150 seconds and monitoring heparin during a vascular procedure >250 seconds. Left common femoral selected and arteriogram with runoff performed @ 10 mL/sec for a total of 30 mL. Balloon inserted over the wire to the superficial femoral. Inflation number: 1 The Lutonix DCB 6.0 X 100mm was reinflated across the Proximal Superficial Femoral, Left, to 6 YUMIKO for 2:00 seconds. Balloon out over wire. Left external iliac selected and arteriogram with runoff performed @ 10 mL/sec for a total of 30 mL. 6fr 45cm flexor sheath exchanged for 6fr short sheath over glidewire. Glidewire out. Sheath injected in Right common femoral artery and runoff performed. A Right femoral angiogram was performed to determine safe placement of closure device. A second right femoral angiogram was performed to determine safe placement of closure device. ACT drawn. Results 281 seconds. Therapeutic limits - pre-heparin administration 90-150 seconds and monitoring heparin during a vascular procedure >250 seconds. Lidocaine 1% infiltrated to the right groin. A Angio-Seal VIP (St. Atul) was successful obtaining hemostatsis at the Right Femoral artery insertion site. LOT # [id number] EXP 07-29-2024. Post Procedure: Pulses reassessed and unchanged. PERRLA. 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 No VTE prophylaxis required. Medication's Wasted: Lidocaine 1% = 3 mL. Medication's Wasted: Nitro = 48.8 mg. Medication's Wasted: Heparin = 1000 units. Medication's Wasted: Other = Hydralizine 10 mg. Total IV fluids: 130 mL. 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 Severe PAD , status post balloon angioplasty. Complications: None. Estimated blood loss: 5mL-10mL. Responsiveness - Normal response to verbal stimuli; alert and oriented, PERRLA. Airway - Unaffected, no intervention required; spontaneous ventilation. Circulation: W/N/L, pulses unchanged. Nausea/Vomiting: No. Procedure completed. Patient transferred by bed to ICU. Vital chart was stopped. Procedure Medications Start: 9:23 AM Stop: 9:23 AM Medication: Versed Amount: 1 mg Route: I.V. Start: 9:23 AM Stop: 9:23 AM Medication: Fentanyl Amount: 50 mcg Route: I.V. Start: 9:26 AM Stop: 9:26 AM Medication: Versed Amount: 1 mg Route: I.V. Start: 9:45 AM Stop: 9:45 AM Medication: Hydralazine Amount: 10 mg Route: I.V. Start: 9:47 AM Stop: 9:47 AM Medication: Fentanyl Amount: 25 mcg Route: I.V. Start: 9:55 AM Stop: 9:55 AM Medication: Heparin Amount: 5000 units Route: I.V. Start: 9:59 AM Stop: 9:59 AM Medication: Versed Amount: 1 mg Route: I.V. Start: 10:05 AM Stop: 10:05 AM Medication: Nitrogylcerin Amount: 400 mcg Route: I.A. Start: 10:15 AM Stop: 10:15 AM Medication: Fentanyl Amount: 25 mcg Route: I.V. Start: 10:20 AM Stop: 10:20 AM Medication: Nitrogylcerin Amount: 400 mcg Route: I.A. Start: 10:27 AM Stop: 10:27 AM Medication: Heparin Amount: 5000 units Route: I.V. Start: 10:29 AM Stop: 10:29 AM Medication: Versed Amount: 1 mg Route: I.V. Start: 10:34 AM Stop: 10:34 AM Medication: Nitrogylcerin Amount: 400 mcg Route: I.A. Start: 10:48 AM Stop: 10:48 AM Medication: Plavix Amount: 300 mg Route: P.O. I, the attending physician, have reviewed and verified all procedure medications. Yes, all medications given per verbal order History/Risk Factors Hypertension: Yes Dyslipidemia: Yes Peripheral Arterial Disease (PAD): No Obesity: No Renal Disease: No Tobacco Use: Former Prior Interventions PCI: Yes CABG: No Valve Surgery: No Date of PCI: 07/15/2023 Report Signatures Finalized by Kulwinder Addison MD on 01/11/2024 04:59 PM
--- NOTE | 2024-01-09 09:19 | W.PM.OPSUD ---
Surgery/Procedure H&P Update DATE OF PROCEDURE: January 09, 2024 DATE H&P PERFORMED: 12/23/23 H&P UPDATE INFORMATION: I have reviewed H&P completed within last 30 days, I have examined patient prior to procedure and No changes to prior documentation PREOP DIAGNOSIS: Lifestyle limiting claudication both legs, high-grade stenosis o SFA bilate PLANNED PROCEDURE: Operation Date: 01/09/24 08:30 Proposed Procedures p Peripheral Diagnostic - PERIPHERAL ANGIOGRAM(Not Applicable) - Kulwinder Addison MD PATIENT REASSESSED PRIOR TO SEDATION, WITH NO CHANGE NOTED: Yes PHYSICAL EXAM: alert, oriented x 3, clear to auscultation bilaterally, regular rate & rhythm and operative site marked OTHER PERTINENT EXAM FINDINGS: Mallampati 2 AIRWAY EVAL/ANESTHESIA PLAN: ASA II, Risks, benefits & alternatives of sedation and/or procedure discussed and Patient agrees to continue as planned ADDITIONAL INFORMATION: All risk-benefit and alternative for the procedure has been explained to patient and his family brother by bedside patient understood completely through his family. He understand risk for stroke major bleed vascular injury acute limb threatening ischemia urgent or emergent vascular surgery transfusion limb loss amputation renal failure. He would like to proceed with it
--- NOTE | 2024-01-09 11:35 | PC.NURSE ---
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 I pad was brought in to try to do sign language communication but they did not hop picker.
[2024-01-09] MEDS: sodium chloride 0.9% 1,000 ML 100 ML IV ×2 (11:48→21:58)
[2024-01-09 17:11] LABS: Bilirubin Urine Negative (Negative); Blood Urine 3+ (Negative); Glucose Urine UA Negative (Normal); Ketones Urine Negative (Negative); Leukocyte Esterase Urine Trace (Negative); Nitrate Urine Negative (Negative); Protein Urine Trace (Negative); Urine Appearance Clear (CLEAR)
[2024-01-09 17:13] LABS: Add Urine Microscopic? YES; Bacteria Urine None Seen /hpf; Hyaline Casts Urine 0.81 /lpf; RBC Urine >100 /hpf (0-2); Squamous Epithelial Cell Urine 0-5 /hpf (0-5); WBC Urine 0-5 /hpf (0-5)
[2024-01-09 17:27] LABS: Specific Gravity, Urine 1.043 (1.005-1.030); Urine Color Red (Yellow)
[2024-01-09 17:30] LABS: Add Urine Culture? Yes
--- NOTE | 2024-01-09 17:59 | PC.NURSE ---
This nurse had to change the dressing to the right groin of the patient where the puncture is from the cath procedure this morning almost every hour. Dr. Addison was notified and he ordered to put a pressure bag on it and he said he was not worried about it. Dressing change started to become more frequent to every [address] Addison was contacted again and he stated he will come see the patient.
--- NOTE | 2024-01-09 18:03 | PC.NURSE ---
Patients urine started to become more red tinged. Dr. Addison ordered to get a urine sample.
--- NOTE | 2024-01-09 18:49 | PC.NURSE ---
Dr. Addison ordered to restart all home medications and to start hydralazine PRN for systolic greater than 160. Dr. Addison assessed the patient and he stated the patient looked well.
[2024-01-09] MEDS: hyDRALAzine 20 mg/mL INJ 1 mL 10 MG IVP (19:01)
[2024-01-09] MEDS: atorvastatin 40 mg Tablet PO (21:56)
[2024-01-09] MEDS: carvedilol 3.125 mg Tablet PO (21:57)
[2024-01-09 23:57] LABS: Glucose Point of Care 136 mg/dL (70-110)
[2024-01-10] VITALS (44 sets, daily range): BP systolic 110–165; BP diastolic 62–93; PULSE 63–85; RESP 14–30; TEMP 36.8; O2SAT 93–98
[2024-01-10 05:31] LABS: Creatinine Clr Calc Pharmacy 89.5781; Glomerular Filtration Rate 98.9 mL/min (90-130)
[2024-01-10] MEDS: carvedilol 3.125 mg Tablet PO (06:29)
[2024-01-10] MEDS: atorvastatin 40 mg Tablet 80 MG PO (08:28)
[2024-01-10] MEDS: metformin 500 mg Tablet PO (08:28)
[2024-01-10] MEDS: aspirin 81 mg EC Tablet PO (08:28)
[2024-01-10] MEDS: clopidogrel 75 mg Tablet PO (08:28)
[2024-01-10] MEDS: sodium chloride 0.9% 1,000 ML 100 ML IV (08:31)
--- NOTE | 2024-01-10 10:14 | PM.DCS ---
Discharge Providers Date of Admission: 01/09/2024 Date of Discharge: January 10, 2024 Attending Provider at Admission: Kulwinder Addison MD Attending Provider at Discharge: Kulwinder Addison MD Primary Care Provider: Maria Alejandra Gary NP Reason for Visit Reason for Visit: M79.604 Hospital Course Hospital Course For lifestyle limiting claudication and severe peripheral vascular disease patient underwent peripheral angiogram noted to have chronically occluded mid SFA reconstituted popliteal, below the knee severe peripheral vascular disease was also noted. There was no significant collateral flow below the knee due to high-grade chronically total occlusion and stenosis in the SFA, patient underwent successful balloon angioplasty followed by drug-coated balloon application in the proximal and mid SFA for moderate and significant lesion, excellent angiographic result with good flow was achieved, below the knee two-vessel runoff was noted through collaterals. Patient had no overnight event except minor oozing from the groin, this morning he is sitting in the bed in chair without any difficulty. He has no hematoma. He has good palpable posterior tibial pulse and dopplerable anterior tibial pulse. His foot is warm on the left side. During the angiogram it was also noted patient has high-grade right distal SFA and below the knee disease. Since he has critically low SURYA on the right side and lifestyle limiting claudication will bring him back for right SFA intervention in 3 to 4 weeks. Patient will be following up with us in the clinic with Ms. Rahel Cook in 10 days. He will be scheduled then for peripheral angiogram of the right leg with me over next 3 to 4 weeks. Physical Exam Chest: OTHER: GENERAL: Patient is alert, awake and oriented x3. HEART: Regular S1 and S2. No murmur, rub or gallop. LUNGS: Clear to auscultate bilaterally. ABDOMEN: Soft, nontender and nondistended. Positive bowel sounds. No guarding, rebound or tenderness. CENTRAL NERVOUS SYSTEM: Grossly nonfocal. EXTREMITIES: Lower extremities with out edema bilaterally. Pulses left posterior tibial palpable, anterior tibial dopplerable, no anterior posterior tibial palpable on the right, left foot is warm and moist Discharge Data Studies Completed and Pending Pending at discharge Category Date Time Status STORY WRITER request for service Routine Exams 01/09/24 07:30 Ordered Urine Culture Routine Lab 01/09/24 16:59 Received Laboratory Results Creatinine 0.8 mg/dL (0.7-1.2) 01/10/24 04:04 GFR Calculation 98.9 mL/min (90-130) 01/10/24 04:04 POC Glucose 136 mg/dL (70-110) H 01/09/24 23:53 Urine Color Red (Yellow) A 01/09/24 16:59 Urine Appearance Clear (CLEAR) 01/09/24 16:59 Urine pH 7.0 (5-7) 01/09/24 16:59 Ur Specific Starlight 1.043 (1.005-1.030) H 01/09/24 16:59 Urine Protein Trace (Negative) A 01/09/24 16:59 Urine Glucose (UA) Negative (Normal) 01/09/24 16:59 Urine Ketones Negative (Negative) 01/09/24 16:59 Urine Blood 3+ (Negative) A 01/09/24 16:59 Urine Nitrate Negative (Negative) 01/09/24 16:59 Urine Bilirubin Negative (Negative) 01/09/24 16:59 Urine Urobilinogen 1.0 mg/dL (Negative) 01/09/24 16:59 Ur Leukocyte Esterase Trace (Negative) A 01/09/24 16:59 Urine RBC >100 /hpf (0-2) H 01/09/24 16:59 Urine WBC 0-5 /hpf (0-5) 01/09/24 16:59 Ur Squamous Epith Cells 0-5 /hpf (0-5) 01/09/24 16:59 Amorphous Sediment Not Reportable 01/09/24 16:59 Urine Bacteria None seen /hpf (NONE) 01/09/24 16:59 Hyaline Casts 0.81 /lpf 01/09/24 16:59 Vitals Last Vital Signs Temp 98.3 F 01/10/24 04:00 Pulse 69 01/10/24 06:00 Resp 18 01/10/24 04:00 BP 159/80 01/10/24 04:00 Pulse Ox 95 01/10/24 03:00 O2 Del Method Room Air 01/10/24 04:00 Discharge Plan Discharge Prescriptions: No Action (DME) blood-glucose meter Kit See Rx Instructions .Route Qty: 1 0RF Rx Instructions: As directed metformin 500 mg tablet 500 mg PO BIDWMEAL Qty: 180 1RF atorvastatin 80 mg tablet 80 mg PO DAILY Qty: 90 1RF carvedilol 3.125 mg tablet 3.125 mg PO Q12H 30 Days Qty: 180 1RF clopidogrel 75 mg tablet 75 mg PO DAILY 30 Days Qty: 90 1RF Symbicort 160-4.5 mcg/actuation HFA aerosol inhaler 2 puff INHALATION BID Qty: 10.2 11RF cilostazol 50 mg tablet 50 mg PO BID Qty: 180 3RF (DME) Truetest Test Strips Strip See Rx Instructions .Route Qty: 100 3RF Rx Instructions: once a day and as needed albuterol sulfate [Ventolin HFA] 90 mcg/actuation HFA aerosol inhaler See Rx Instructions .ROUTE .COMPLEX Qty: 18 1RF Dose Instruction: INHALE 2 PUFFS BY MOUTH EVERY 4 HOURS NEEDED FOR SHORTNESS OF BREATH OR WHEEZING Rx Instructions: INHALE 2 PUFFS BY MOUTH EVERY 4 HOURS NEEDED FOR SHORTNESS OF BREATH OR WHEEZING omega-3 fatty acids 1,000 mg Capsule 1,000 mg PO DAILY aspirin 81 mg Tablet,Delayed Release (Dr/Ec) 81 mg PO DAILY Diet: Cardiac Activity: Increase activity as tolerated Patient Instructions: Peripheral Vascular Angioplasty (DC) Activity Restrictions/Additional Instructions: Please apply Band-Aid on the right groin for 3 to 4 days, patient can take showers with bandage on, patient is advised not to lift anything more than a gallon of milk for next 2 days. Please schedule patient with Bhavik Rahel Cook In 10 days Patient will be scheduled for stage right distal SFA intervention in 3 to 4 weeks. Discharge Attestations Time Spent in Discharge Care*: greater than 30 min Quality Metrics Clinical Quality Measures [ No reported AMI, CVA or VTE this stay] Coding Level of Care Code Acute Code for [facility]
--- NOTE | 2024-01-10 11:01 | PC.NURSE ---
Patient was discharged to home with brother picking them up. Discharge instructions were given to brother and patient. IV was taken out of patient. Patient was stable during discharge.
== END 2024-01-10 11:00 | disposition home or self-care (01) ==
LOC: CCL 06:29 → ICU 01-10 08:05
PROVIDERS: PCP Nurse Practitioner Family; Visit Provider Internal Medicine Cardiovascular Disease
DX: I70.203 Unspecified atherosclerosis of native arteries of extremities, bilateral legs (principal); I70.92 Chronic total occlusion of artery of the extremities; I10 Essential (primary) hypertension; E78.5 Hyperlipidemia, unspecified; Z87.891 Personal history of nicotine dependence; E11.9 Type 2 diabetes mellitus without complications; J44.9 Chronic obstructive pulmonary disease, unspecified; Z87.11 Personal history of peptic ulcer disease; I25.10 Atherosclerotic heart disease of native coronary artery without angina pectoris
CPT/HCPCS: 36415; 36416; 37224; 75625; 75716; 81001; 82565; 82962; 85347; 87086; 96374; 96375; 99152; 99153; C1725; C1760; C1769; C1887; C1894; C2623; G0269; J0360; J1644; J2250; J3010; J3490; J7030; Q0163; Q9967

== ENCOUNTER → 2024-01-20 08:51 | Outpatient (BNVA) | payer MEDICARE, MEDICAID, SELFPAY | PROVIDERS: PCP Nurse Practitioner Family; Visit Provider Nurse Practitioner Family | DX: I73.9 Peripheral vascular disease, unspecified (principal) | CPT/HCPCS: 36415; 80048; 99214 ==

== ENCOUNTER 2024-01-30 06:58 | Outpatient (CLI) | payer MEDICARE, MEDICAID, SELFPAY ==
[2024-01-30] VITALS (51 sets, daily range): BP systolic 84–175; BP diastolic 55–107; PULSE 62–94; RESP 6–26; TEMP 36.4; O2SAT 92–98; BMI 24.6
[2024-01-30] MEDS: diphenhydrAMINE 50 mg Capsule PO (07:30)
--- NOTE | 2024-01-30 07:30 | XACV_ITS ---
Exam Room: 2 Ht: 165 cm Wt: 67 kg BSA: 1.76 m2 Gender: Male : 1965 Any Known Allergies: No known allergies Exam Priority: Routine Procedure(s): Procedure Description: Diagnostic procedure Procedure Description: Peripheral Cath Diagnostic Procedure Procedure Description: Lower extremities' angiography Procedure Description: Peripheral vascular Intervention Procedure Description: PV Balloon Procedure Description: Miscellaneous Procedure Description: ACT [id number]; Diagnostic Cath Status: Elective Diagnostic Findings * No disease noted in the Left Main, Left Anterior Descending, Right, or Circumflex coronary arteries. * Coronary angiography shows right dominance. PCI Status: Elective Lower Extremity Interventional Findings Indication for the procedure: Critical limb ischemia of the right leg, stage percutaneous angioplasty of the right distal SFA and popliteal vessel for high-grade more than 90% stenosis.Catheter used: JR4 to cross with a contralateral side with Glidewire Left common femoral artery approach was adopted: Left common femoral artery was used with a short 6 [place] sheath which was placed.With the help of JR4 catheter and Glidewire we were able to cross to the contralateral side into right common iliac, wire was then advanced into the distal SFA. Over the wire long 6 [place] sheath was exchanged.With the help of seeker over Glidewire after somewhat difficulty were able to cross into peroneal vessel.Percutaneous angioplasty: Using AB [place] OTW 5 x 100 x 135 balloon angioplasty was performed of the right distal SFA and proximal popliteal artery. Lutonix 6 x 40 mm drug-coated balloon was then used dilute drug into the diseased segment for 2 minutes.Excellent angiographic result with good flow was noted in right SFA, popliteal, tibioperoneal trunk, posterior tibial and peroneal artery on the right side. Proximal anterior tibial artery appeared to be occluded with reconstitute in the middle to distal segment through collaterals since there is three-vessel runoff therefore we decided to leave the anterior tibial as it reconstitute in its mid to distal segment. Conclusions Indication: Stage percutaneous angioplasty for high-grade right distal SFA and popliteal artery.Result: Excellent angiographic result after balloon angioplasty with and without drug-coated balloon was performed. More than 90% stenosis was reduced to 10% without residual dissection. Good three-vessel runoff was noted below the right knee. Posterior tibial has diffuse disease in the proximal segment but it fills in briskly and adequately, right anterior tibial artery is subtotally occluded in the proximal segment however it reconstitute in mid to distal segment therefore thought to be managed medically since we have good three-vessel runoff to the foot. No disease noted in the Left Main, Left Anterior Descending, Right, or Circumflex coronary arteries. Recommendations 1-Return to inpatient for close monitoring and routine cath care 2-Risk factor modification for secondary prevention 3-Statin and aspirin 81 mg life-long, if tolerated 4-Continue Dual antiplatelet therapy 5-Continue optimal medical management 6-Follow up with Dr. Addison in four weeks and your primary care in 10 days. Pressures Phase:Rest AO : 99 / 63 ( 78 ) @ 11:50:00 AM 93 / 70 ( 82 ) @ 11:57:00 AM 107 / 66 ( 83 ) @ 12:00:00 PM Hemodynamic Data Phase:Rest AO : 99.0 / 63.0 ( 78.0 ) @ 11:50:00 AM 93.0 / 70.0 ( 82.0 ) @ 11:57:00 AM 107.0 / 66.0 ( 83.0 ) @ 12:00:00 PM Clinical Evaluation EBL: 5mL-10mL Procedural Details Procedure Consent Obtained. Pre-Procedure Time Out. Identified patient by full name and date of as verbalized by the patient/guarantor. Does the consent match the physician's order: Yes. Accurate & Complete Informed Consent: Yes. Inpatient/Outpatient History & Physical on Chart: Yes. If H&P is completed, is and addenduem needed: no. Visualize and Verify Site with Patient/Guarantor: N/A. Relevant Radiology Images available: Yes. The risks, benefits, and alternatives of sedation and/or procedure were discussed by physician. The patient agrees to continue. Procedure started. [facility] Clinical Fraility Score: 3: Managing Well. Him Specialist Indications: PVD. Correct patient, site and procedure confirmed by cath team. PERRLA. Strong, equal hand health and wellness advisor bilaterally. Lungs clear x 5 lobes. IV Site on Arrival: 20 gauge in the left anticubital. IV Fluids: 0.9% NaCl at KVO. 0 mL infused prior to chemical laboratory technician. Pre Procedural Pulses: right dorsalis pedis was Doppled. Pre Procedural Pulses: left dorsalis pedis was 2+. Pre Procedural Pulses: right posterior tibial was Doppled. Pre Procedural Pulses: left posterior tibial was 1+. Pre Procedural Pulses: bilateral radial was 3+. Oxygen started at 2liters/min via nasal canula. Physician notified. Baseline sample Acquired. HR: 59 BPM. Patient's brother in CPRU room 4. Dr. Addison will update at the completion of the procedure. Equipment: 6F - Femoral. Cardiac Cath Pack. ACIST Manifold Kit Model BT 2000. Heparinized Saline (2 units/mL), 1000 mL bag. Kit, Micropuncture. Physician arrived. Physician scrubbed in. Immediate Pre-Procedure Time Out. Correct Patient: Yes; Correct Procedure: Yes; Correct Site: Yes; Correct Patient Position: Yes; Correct Supplies: Yes; Dried Flammable Prep: Yes; Blood Products Available: N/A. Lidocaine 1% infiltrated to the left groin. Arterial access obtained with micropuncture set. Blood drawn and sent to the lab for a potassium. A 5Fr UF catheter in over the 0.035 x 260 stiff angled glidewire. Sheath upsized to a 6 Fr. UF catheter out OTW. Seeker support catheter in OTW. Glidewire advanced past the lesion in the right popliteal. Glidewire out. Glidewire in. Seeker catheter out OTW. Right popliteal selected and arteriogram performed. Inflation number : 1 A AB ARMADA 35 OTW [id number] was prepped and advanced across the Popliteal, Right Popliteal, Right , then inflated to 8 YUMIKO for 2:04 seconds. Inflation number: 2 The AB ARMADA 35 OTW [id number] was reinflated across the Popliteal, Right Popliteal, Right, to 8 YUMIKO for 2:02 seconds. Balloon out. ACT drawn. Results 207 seconds. Therapeutic limits - pre-heparin administration 90-150 seconds and monitoring heparin during a vascular procedure >250 seconds. Right superficial femoral selected and arteriogram with runoff performed @ 10 mL/sec for a total of 30 mL. Inflation number : 3 A LUTONIX 035 was prepped and advanced across the Popliteal, Right Popliteal, Right , then inflated to 4 YUMIKO for 1:02 seconds. Inflation number: 4 The LUTONIX 035 was reinflated across the Popliteal, Right Popliteal, Right, to 7 YUMIKO for 2:05 seconds. Balloon out. Right superficial femoral selected and arteriogram with runoff performed @ 10 mL/sec for a total of 30 mL. Sheath upsized to a 6 Fr. A Left femoral angiogram was performed to determine safe placement of closure device. Lidocaine 1% infiltrated to the left groin. A Angio-Seal VIP (St. Atul) was successful obtaining hemostatsis at the Right Femoral artery insertion site. Angioseal placed without complications. No signs or symptoms of hematoma noted. Sterile dressing applied per usual sterile fashion. Lot # [id number]. Exp 2024-08-20. Post Procedure: Pulses reassessed and unchanged. PERRLA. Strong, equal hand health and wellness advisor bilaterally. No VTE prophylaxis required. Medication's Wasted: Lidocaine 1% = 10 mL. Medication's Wasted: Nitro = 49.2 mg. Medication's Wasted: Other = versed 1 mg. Medication's Wasted: Other = Fentanyl 25 mcg. Total IV fluids: 75 mL. Post-op diagnosis: S/P balloon angioplasty of the right poploteal. Complications: none. Estimated blood loss: 5mL-10mL. Responsiveness - Normal response to verbal stimuli; alert and oriented, PERRLA. Airway - Unaffected, no intervention required; spontaneous ventilation. Circulation: W/N/L, pulses unchanged. Procedure completed. Nausea/Vomiting: No. Patient transferred by bed to CPRU. ACT drawn. Results 236 seconds. Therapeutic limits - pre-heparin administration 90-150 seconds and monitoring heparin during a vascular procedure >250 seconds. Access Site Site: Right Femoral artery Sheath Size: 6 Fr Hemostasis Method: Angio-Seal VIP (St. Atul) Hemostasis Success: Successful Procedure Medications Start: 10:07 AM Stop: 10:07 AM Medication: Versed Amount: 1 mg Route: I.V. Start: 10:08 AM Stop: 10:08 AM Medication: Fentanyl Amount: 50 mcg Route: I.V. Start: 10:17 AM Stop: 10:17 AM Medication: Versed Amount: 1 mg Route: I.V. Start: 10:26 AM Stop: 10:26 AM Medication: Heparin Amount: 5000 units Route: I.V. Start: 10:35 AM Stop: 10:35 AM Medication: Versed Amount: 1 mg Route: I.V. Start: 10:35 AM Stop: 10:35 AM Medication: Fentanyl Amount: 25 mcg Route: I.V. Start: 10:47 AM Stop: 10:47 AM Medication: Nitrogylcerin Amount: 400 mcg Route: I.A. Start: 10:51 AM Stop: 10:51 AM Medication: Heparin Amount: 3000 units Route: I.V. Start: 10:59 AM Stop: 10:59 AM Medication: Nitrogylcerin Amount: 400 mcg Route: I.A. I, the attending physician, have reviewed and verified all procedure medications. Yes, all medications given per verbal order History/Risk Factors Hypertension: Yes Dyslipidemia: Yes Peripheral Arterial Disease (PAD): Yes Myocardial Infarction (LA): Yes Obesity: No Renal Disease: No Tobacco Use: Former Prior Interventions PCI: No CABG: No Valve Surgery: No Report Signatures Finalized by Kulwinder Addison MD on 02/23/2024 11:29 PM
[2024-01-30 07:50] LABS: Basophils % 0.4 %; Eosinophils # 0.2 10^3/uL (0.0-0.8); Hematocrit 36.6 % (37-53); Lymphocytes # 1.6 10^3/uL (0.8-4.8); Lymphocytes % 15.5 %; Mean Corpuscular HGB Conc 34.4 g/dL (30-55); Mean Corpuscular Hemoglobin 33.4 pg (27-33); Mean Corpuscular Volume 97.1 fl (82-101); Mean Platelet Volume 9.3 fL (7.4-10.4); Monocytes % 9.5 %; Neutrophils % 72.3 %; Nucleated Red Blood Cells % 0 %; Platelet Count 262 10^3/cmm (157-399); Red Blood Count 3.77 10^6/uL (3.85-5.65); Red Cell Distribution Width 14.5 % (12.1-15.1); White Blood Count 10.23 10^3/uL (3.29-11.43)
[2024-01-30 08:06] LABS: Anion Gap 14.8 (5-19); Blood Urea Nitrogen 14 mg/dL (6-20); Calcium 8.6 mg/dL (8.5-10.5); Carbon Dioxide 29 mmol/L (22-29); Chloride 100 mmol/L (98-107); Creatinine Clr Calc Pharmacy 89.6524; Glomerular Filtration Rate 98.9 mL/min (90-130); Glucose 103 mg/dL (65-115); Osmolality Calculated 293 mOsm/kg (285-295); Sodium 141 mmol/L (136-145)
[2024-01-30 08:08] LABS: Potassium 2.8 mmol/L (3.5-5.1)
[2024-01-30] MEDS: potassium chloride ER 20 mEq Tablet 40 MEQ PO (08:28)
--- NOTE | 2024-01-30 10:05 | P.HP_ITS ---
Same Day Surgery H&P Indication for Procedure/HPI DATE OF PROCEDURE: January 30, 2024 CHIEF COMPLAINT/INDICATIONFOR SURGICAL PROCEDURE: Lifestyle limiting claudication of right leg Severe distal SFA/popliteal stenosis as noted by peripheral angiogram performed on 01/09/2024 PREOP DIAGNOSIS: Lifestyle limiting claudication of right leg severe distal Fem/pop stenosis PLANNED PROCEDURE: Operation Date: 01/30/24 08:30 Proposed Procedures p Peripheral Diagnostic - angio perip angio(Not Applicable) - Kulwinder Addison MD 58-year-old male past medical history significant for hypertension hyperlipidemia history of tobacco abuse severe peripheral vascular disease underwent peripheral angiogram and reconstruction of left mid popliteal artery for lifestyle limiting claudication. During the same angiogram right lower extremity peripheral angiogram was performed which confirmed severe stenosis of the distal SFA/popliteal artery near occlusion, today patient has brought back for peripheral angioplasty of the distal SFA/popliteal. Patient has failed medical therapy in the past. He has lifestyle limiting claudication, he cannot get by and walk far to complete his task. All risk-benefit and alternative for the procedure has been explained to the patient. He understand risk for acute limb ischemia from embolic phenomena dissection of the vessel leading to occlusion. He understand risk for stroke major bleed requiring transfusion which is around 2%. He understand risk for vascular injury laceration hematoma pseudoaneurysm contrast induced renal failure. He agrees to it and would like to proceed with it. Today's potassium was 2.8 we have given him 40 meq of potassium chloride by mouth, I will recheck potassium in an hour. Medications/Allergies* Home Medications Medication Instructions Recorded Confirmed Type omega-3 fatty acids 1,000 mg 1,000 mg PO DAILY 07/15/23 01/30/24 History capsule aspirin 81 mg tablet,delayed 81 mg PO DAILY 01/08/24 01/30/24 History release Allergies/Adverse Reactions Allergy/AdvReac Type Severity Reaction Status Date / Time No Known Allergies Allergy Verified 01/27/24 12:36 Current Medications: Generic Name Dose Route Start Last Admin Trade Name Freq PRN Reason Stop Dose Admin Sodium Chloride 1,000 mls @ 50 mls/hr 01/30/24 07:30 01/30/24 07:15 Sodium Chloride 0.9% IV 01/31/24 03:29 Not Given .Q20H ONE Pertinent History/Comorbid Conditions* Medical History (Updated 01/20/24 @ 08:35 by CLAUDIA Carvajal) Leg pain Atherosclerosis of [place] coronary artery without angina pectoris Diabetes Hypertension Carotid stenosis History of heart attack Enrolled in chronic care management COPD (chronic obstructive pulmonary disease) Peptic ulcer disease Hyperlipidemia Atherosclerosis of [place] coronary artery of [place] heart with unstable angina pectoris Esophageal dysfunction ASHD (arteriosclerotic heart disease) Surgical History (Updated 09/30/19 @ 14:06 by Allison Gonzalez MD) Hx of neck surgery Social History Smoking and tobacco/nicotine status: former use of tobacco/nicotine Quit status (tobacco/nicotine): has quit using Year quit tobacco: 2013 Alcohol intake: former Pertinent Exam Findings alert, oriented x 3, clear to auscultation bilaterally, regular rate & rhythm, o perative site marked and procedure specific exam findings GENERAL: Patient is alert, awake and oriented x3. HEART: Regular S1 and S2. No murmur, rub or gallop. LUNGS: Clear to auscultate bilaterally. CENTRAL NERVOUS SYSTEM: Grossly nonfocal. EXTREMITIES: Lower extremities with out edema bilaterally. Pulses not palpable in right foot Conscious Sedation Assessment PATIENT ASSESSED PRIOR TO SEDATION, WITH NO CHANGE NOTED: Yes AIRWAY EVAL/ANESTHESIA PLAN: ASA II, Risks, benefits & alternatives of sedation and/or procedure discussed and Patient agrees to continue as planned Recommendations Surgery/Procedure today Coding Level of Care Code Acute Code for Chg Fwd
[2024-01-30 10:47] LABS: Potassium 3.2 mmol/L (3.5-5.1)
--- NOTE | 2024-01-30 12:03 | PC.NURSE ---
Patient received from laborer yard via bed. Patient is s/p peripheral angiogram with angioplasty. Left femoral access. Sheath removed and angioseal placed in laborer yard. No s/s of bleeding observed or hematoma formation observed. Will continue to monitor.
--- NOTE | 2024-01-30 13:36 | PC.NURSE ---
Patient c/o severe pain to right leg. Noted hard swelling to right calf s/p peripheral angiogram. Pulses remain palpable however extremity is cool to touch. Informed Dr Addison of changes and pain. Dr Addison into see patient. Received verbal order to give morphine 2mg IVP every 2 hours for pain and to wrap the calf tight with renan wrap.
[2024-01-30] MEDS: morphine 4 mg/mL SDV 1 mL 2 MG IVP ×2 (13:43→17:40)
--- NOTE | 2024-01-30 14:04 | PC.NURSE ---
Right calf wrapped with renan bandage. Patient tolerated well. Patient now resting with eyes closed. Pulses remains palpable to right foot. Extremity warmer to touch. Left femoral access site remains c,d,i without s/s of bleeding or hematoma formation observed. Will continue to monitor.
--- NOTE | 2024-01-30 14:36 | PC.NURSE ---
Pulses to right extremity remain palpable at this time. patient reports some relief of pain.
[2024-01-31] VITALS (33 sets, daily range): BP systolic 105–147; BP diastolic 60–75; PULSE 65–82; RESP 12–21; TEMP 36.7–37.2; O2SAT 92–96
[2024-01-31] MEDS: morphine 4 mg/mL SDV 1 mL 2 MG IVP (05:32)
--- NOTE | 2024-01-31 07:37 | PC.NURSE ---
Dressing to left groin remains c,d,i without s/s of bleeding or hematoma formation observed. Hematoma to right calf is resolved. Patient still c/o pain to the sight however is improved. Will continue to monitor.
--- NOTE | 2024-01-31 10:25 | PM.DCS ---
Discharge Providers Date of Discharge: January 31, 2024 Attending Provider at Admission: Kulwinder Addison MD Attending Provider at Discharge: Kulwinder Addison MD Consults: None Primary Care Provider: Maria Alejandra Gary NP Reason for Visit Reason for Visit: I73.9 Brief History: 58-year-old male past medical history significant for heart hypertension hyperlipidemia severe peripheral vascular disease lifestyle limiting claudication in both legs underwent staged percutaneous angioplasty of distal SFA and right popliteal artery. Excellent angiographic result with good flow was noted, however post recovery course was complicated with moderate hematoma in the right calf possible due to small perforation. Patient reported pain in the leg, he had good anterior and posterior tibial pulses along with sensation and motor, hematoma was compressed, overnight patient did fine, he has some soreness in the right leg but no sensory motor or vascular deficit. He has walked around today he reported soreness but no other major complaint. He will be discharged today. At the time of discharge his right leg foot is warm moist good capillary refill and positive 1+ PT/AT. He has no residual hematoma of the calf. His calf muscle is soft but sore. Patient has been advised in case of worsening of pain big bruising he should call us and we may we will see him back. He will be seeing us in the cardiology clinic in 1 week. He will resume his medications including Plavix today. I will discontinue cilostazol. Hospital Course Hospital Course As above Physical Exam Const: OTHER: GENERAL: Patient is alert, awake and oriented x3. No HEART: Regular S1 and S2. No murmur, rub or gallop. LUNGS: Clear to auscultate bilaterally. ABDOMEN: Soft, nontender and nondistended. Positive bowel sounds. No guarding, rebound or tenderness. CENTRAL NERVOUS SYSTEM: Grossly nonfocal. EXTREMITIES: Lower extremities with out edema bilaterally. Pulses palpable in the lower extremities, 1+ AT/PT Discharge Data Studies Completed and Pending Pending at discharge Category Date Time Status [employer] request for service Routine Exams 01/30/24 07:30 Taken Laboratory Results WBC 10.23 10^3/uL (3.29-11.43) 01/30/24 07:30 RBC 3.77 10^6/uL (3.85-5.65) L 01/30/24 07:30 Hgb 12.60 g/dL (11.27-16.99) 10/24/24 07:30 Hct 36.6 % (37-53) L 01/30/24 07:30 MCV 97.1 fl (82-101) 01/30/24 07:30 MCH 33.4 pg (27-33) H 01/30/24 07:30 MCHC 34.4 g/dL (30-55) 01/30/24 07:30 RDW 14.5 % (12.1-15.1) 01/30/24 07:30 Plt Count 262 10^3/cmm (157-399) 01/30/24 07:30 MPV 9.3 fL (7.4-10.4) 01/30/24 07:30 Neut % (Auto) 72.3 % 01/30/24 07:30 Lymph % (Auto) 15.5 % 01/30/24 07:30 [place] % (Auto) 9.5 % 01/30/24 07:30 Eos % (Auto) 2.0 % 01/30/24 07:30 Baso % (Auto) 0.4 % 01/30/24 07:30 Neut # (Auto) 7.40 10^3/uL (1.8-7.7) 01/30/24 07:30 Lymph # (Auto) 1.6 10^3/uL (0.8-4.8) 01/30/24 07:30 [place] # (Auto) 1.0 10^3/uL (0.2-0.9) H 01/30/24 07:30 Eos # (Auto) 0.2 10^3/uL (0.0-0.8) 01/30/24 07:30 Baso # (Auto) 0.0 10^3/uL (0.0-0.1) 01/30/24 07:30 Nucleated RBC % (auto) 0 % 01/30/24 07:30 Nucleated RBCs # 0.0 /100WBC 01/30/24 07:30 Sodium 141 mmol/L (136-145) 01/30/24 07:30 Potassium 3.2 mmol/L (3.5-5.1) L 01/30/24 10:22 Chloride 100 mmol/L (98-107) 01/30/24 07:30 Carbon Dioxide 29 mmol/L (22-29) 01/30/24 07:30 Anion Gap 14.8 (5-19) 01/30/24 07:30 BUN 14 mg/dL (6-20) 01/30/24 07:30 Creatinine 0.8 mg/dL (0.7-1.2) 01/30/24 07:30 GFR Calculation 98.9 mL/min (90-130) 01/30/24 07:30 Glucose 103 mg/dL (65-115) 01/30/24 07:30 Calculated Osmolality 293 mOsm/kg (285-295) 01/30/24 07:30 Calcium 8.6 mg/dL (8.5-10.5) 01/30/24 07:30 Vitals Last Vital Signs Temp 98.0 F 01/31/24 07:45 Pulse 77 01/31/24 07:45 Resp 20 H 01/31/24 07:45 BP 117/66 01/31/24 07:45 Pulse Ox 93 01/31/24 07:45 O2 Del Method Room Air 01/31/24 07:45 Discharge Plan Discharge Prescriptions: Continued (DME) blood-glucose meter Kit See Rx Instructions .Route Qty: 1 0RF Rx Instructions: As directed carvedilol 3.125 mg tablet 3.125 mg PO Q12H 30 Days Qty: 180 1RF clopidogrel 75 mg tablet 75 mg PO DAILY 30 Days Qty: 90 1RF Symbicort 160-4.5 mcg/actuation HFA aerosol inhaler 2 puff INHALATION BID Qty: 10.2 11RF cilostazol 50 mg tablet 50 mg PO BID Qty: 180 3RF (DME) Truetest Test Strips Strip See Rx Instructions .Route Qty: 100 3RF Rx Instructions: once a day and as needed albuterol sulfate [Ventolin HFA] 90 mcg/actuation HFA aerosol inhaler See Rx Instructions .ROUTE .COMPLEX Qty: 18 1RF Dose Instruction: INHALE 2 PUFFS BY MOUTH EVERY 4 HOURS NEEDED FOR SHORTNESS OF BREATH OR WHEEZING Rx Instructions: INHALE 2 PUFFS BY MOUTH EVERY 4 HOURS NEEDED FOR SHORTNESS OF BREATH OR WHEEZING atorvastatin 80 mg tablet See Rx Instructions .ROUTE .COMPLEX Qty: 90 1RF Dose Instruction: TAKE ONE TABLET BY MOUTH ONCE DAILY Rx Instructions: TAKE ONE TABLET BY MOUTH ONCE DAILY metformin 500 mg tablet See Rx Instructions .ROUTE .COMPLEX Qty: 180 1RF Dose Instruction: TAKE ONE TABLET BY MOUTH TWICE DAILY WITH MEALS Rx Instructions: TAKE ONE TABLET BY MOUTH TWICE DAILY WITH MEALS omega-3 fatty acids 1,000 mg Capsule 1,000 mg PO DAILY aspirin 81 mg Tablet,Delayed Release (Dr/Ec) 81 mg PO DAILY Referrals: Allison Gonzalez MD [Physician] - 02/05/24 3:00 pm Rahel Cook FNP [Nurse Practitioner] - 02/11/24 4:00 pm Diet: Cardiac Activity: Increase activity as tolerated Patient Instructions: Peripheral Vascular Angioplasty (DC) Activity Restrictions/Additional Instructions: No lifting of more than a gallon of milk for next 2 days. No walking more than flight of stairs for next 2 days. If he noticed big bruising swelling of the right calf or left groin please call us. With worsening of pain swelling of the foot please come to the ER. You will be scheduled to see cardiology nurse practitioner Ms. Deepti Bernal or Ms. Rahel Cook in 1 week Discharge Attestations Time Spent in Discharge Care*: greater than 30 min Quality Metrics Clinical Quality Measures [ No reported AMI, CVA or VTE this stay] Coding Level of Care Code Acute Code for Chg Fwd
--- NOTE | 2024-01-31 11:08 | PC.CHAP ---
Pastoral Care Encounter/Spiritual Assessment Type of Contact [] Declined tourist agent visit [] Patient/Family/Request visit [] Outpatient visit [] Follow-up visit [] Physician referral [] Code/Alert [X] Routine visit [] Staff referral [] Actively dying [] Patient sleeping [] Family support [] [] Out of room [] Palliative care [] [] Receiving care in room [] Pre-surgical visit [] Trauma [] Long length of stay [] ICU visit [X] Other: No Prayer Relational/Emotional Strength [] Patient feels connected with others/family/visitors/staff [] Distress [] Loneliness/isolation [] Abandonment Spirituality of Patient [] Person of Ana [] Attends Sikh of their Ana [] Believes in Prayer [] Reads Bible or Cheondoism materials [x] There are Spiritual issues to be addressed [employer] Tender Interventions [] Prayer [x] Active listening [] Non-anxious presence [] Spiritual/emotional support [] Crisis/trauma care [] Spiritual counseling [] Bereavement support [] Provided bereavement packet [] Provided Bible/devotional materials [] Provided toy/stuffed animal, coloring book to patient or family member [] Provided Communion [] Anointing/[place] [] Salvation [] Completed spiritual assessment [X] Other: Wanted to talk Impact on Illness or Injury [] Angry [] Fearful [x] Anxious [] Often cries [] Exhaustion [] Unable to work [] Unable to attend adventism [] Unable to walk/stand [] Unable to read [] Unable to drive [] Unable to eat/drink [] Unable to sleep [] Unable to be with family [] Patient intubated [] Other: Summary Being released today, Patient was anxious and defensive. Time spent with patient 15 Min
--- NOTE | 2024-01-31 11:56 | PC.NURSE ---
Patient discharged to home. Instruction provided to patient and brother regarding follow up needs and site care. No medication changes. Both verbalized complete understanding. Patient taken by wheelchair to private vehicle. No distress observed.
== END 2024-01-31 11:59 | disposition home or self-care (01) ==
LOC: CCL 07:04 → CSU 01-31 08:22
PROVIDERS: PCP Nurse Practitioner Family; Visit Provider Internal Medicine Cardiovascular Disease
DX: I70.291 Other atherosclerosis of native arteries of extremities, right leg (principal); I10 Essential (primary) hypertension; E78.5 Hyperlipidemia, unspecified; L76.12 Accidental puncture and laceration of skin and subcutaneous tissue during other procedure; Y83.9 Surgical procedure, unspecified as the cause of abnormal reaction of the patient, or of later complication, without mention of misadventure at the time of the procedure; I25.2 Old myocardial infarction; Z87.891 Personal history of nicotine dependence
CPT/HCPCS: 36415; 37224; 80048; 84132; 85025; 85347; 96374; 96376; 99152; 99153; C1725; C1760; C1769; C1887; C1894; C2623; G0269; J1644; J2250; J2270; J3010; J3490; J7030; Q0163; Q9967

== ENCOUNTER → 2024-02-05 09:27 | Outpatient (BNVA) | payer MEDICARE, MEDICAID, SELFPAY | PROVIDERS: PCP Nurse Practitioner Family; Visit Provider Internal Medicine Cardiovascular Disease | DX: I25.10 Atherosclerotic heart disease of native coronary artery without angina pectoris (principal); I10 Essential (primary) hypertension; I73.9 Peripheral vascular disease, unspecified; M79.89 Other specified soft tissue disorders; Z87.891 Personal history of nicotine dependence; R06.02 Shortness of breath | CPT/HCPCS: 36415; 80048; 99214 ==

== ENCOUNTER 2024-02-20 15:18 | Outpatient (CLI) | payer MEDICARE, MEDICAID, SELFPAY ==
--- NOTE | 2024-02-20 16:00 | USCV_ITS ---
Dalton Lo Age: 59 Gender: M : 1965 Exam Date: 02/20/2024 15:36 Ordering Phys: Allison Gonzalez MD ([email or web address]) Technologist: ASHLYN [place] [facility] [place]: pain and bruising Risk Factors: Previous Vascular Surgery: RIGHT LEFT BP: 132.0 / 61.00 BP: 145.0/ 76.00 0 0 Waveform Velocity (cm/s) Velocity (cm/s) Waveform Triphasic 90.3 Iliac Prox Triphasic 85.5 Iliac Mid Triphasic 104.1 Iliac Distal Triphasic 92.0 STRAP MAKING MACHINE OPERATOR Triphasic 89.0 SFA Prox Triphasic 108.0 SFA Mid Triphasic 51.0 SFA Dist Triphasic 61.0 POP Biphasic 85.0 HAND KNITTER Biphasic 30.0 DPA 1.5 SURYA FINDINGS he said he had a balloon procedure to clean out the arteries as well Mild to moderate plaques in the iliac, common femoral and popliteal arteris on the right side Resting SURYA of zero 1.5 on the right side CONCLUSIONS 1. Super normal resting SURYA on the right side. 2. Mild to moderate scattered plaques in the iliac, common femoral and popliteal arteries on the right side. Dr Allison Gonzalez MD [facility] (Electronically Signed) Final Date: 21 February 2024 09:43 S
== END 2024-02-20 15:19 | disposition home or self-care (01) ==
LOC: RAD 15:19
PROVIDERS: PCP Nurse Practitioner Family; Visit Provider Internal Medicine Cardiovascular Disease
DX: I25.10 Atherosclerotic heart disease of native coronary artery without angina pectoris (principal); I70.203 Unspecified atherosclerosis of native arteries of extremities, bilateral legs; I70.8 Atherosclerosis of other arteries
CPT/HCPCS: 93926

== ENCOUNTER 2024-03-13 06:00 | Outpatient (CLI) | payer MEDICARE, MEDICAID, SELFPAY | END 2024-03-13 06:01 | disposition home or self-care (01) | LOC: RAD 03-19 07:19 | PROVIDERS: PCP Nurse Practitioner Family; Visit Provider Nurse Practitioner Family | DX: I11.0 Hypertensive heart disease with heart failure (principal); I50.20 Unspecified systolic (congestive) heart failure; I73.9 Peripheral vascular disease, unspecified; I25.10 Atherosclerotic heart disease of native coronary artery without angina pectoris; Z87.891 Personal history of nicotine dependence | CPT/HCPCS: 99214 ==

== ENCOUNTER 2024-04-03 08:12 | Outpatient (CLI) | payer MEDICARE, MEDICAID, SELFPAY ==
--- NOTE | 2024-04-03 08:30 | USCV_ITS ---
Dalton Lo Age: 59 Gender: M : 1965 Exam Date: 04/03/2024 08:36 Ordering Phys: Rahel Cook Technologist: CT [place]am [place] [facility] [place] [facility] [place] Indication: LV dysfunction BP: 126 / 80 HR: 51 Rhythm: Sinus Technical Quality: Adequate MEASUREMENTS (Male / Female) Normal Values 2D ECHO LVOT Diameter 2.0 cm LV Ejection Fraction MOD 4C 52.3 % LV Ejection Fraction MOD 2C 47.9 % LV Ejection Fraction 2C AL 48.4 % LA Diameter 3.4 cm RA Systolic Volume 4C AL 25.4 ml RA Systolic Volume 4C MOD 24.5 ml LA Sys Volume AL 34.2 cm cubed LA Sys Volume Index AL 19.0 cm cubed/m squared Aorta at Sinotubular Diameter 1.9 cm IVC Diameter 1.6 cm M-MODE LA Ao Ratio MM 1.0 AV Cusp Separation MM 1.6 cm DOPPLER AV Peak Velocity 137.0 cm/s LVOT Peak Velocity 84.0 cm/s AV Area Cont Eq vti 2.0 cm squared AV Area Cont Eq pk 2.0 cm squared MV Peak Velocity 91.0 cm/s MV Area PHT 2.2 cm squared Mitral E to A Ratio 0.8 TR Peak Velocity 326.5 cm/s TR Peak Gradient 42.6 mmHg TR Mean Velocity 236.0 cm/s TR Mean Gradient 25.3 mmHg TR Velocity Time Integral 100.8 cm PV Peak Velocity 90.0 cm/s FINDINGS Left Ventricle LV systolic function is mildly reduced with EF of 45-50%. Mild global hypokinesis. Right Ventricle Normal in size and function Right Atrium Normal in size Left Atrium Normal in size Mitral Valve Structurally normal mitral valve. Mild mitral regurgitation. Aortic Valve Structurally normal aortic valve. No significant stenosis. Mild aortic regurgitation. Tricuspid Valve Mild tricuspid regurgitation. RVSP is 40-45mmHg. This is consistent with mild pulmonary hypertension Pulmonic Valve Not well visualized Pericardium Normal Aorta Normal in size IVC Appears to be normal CONCLUSIONS LV systolic function is mildly reduced with EF of 45-50% Mild mitral regurgitation Mild aortic regurgitation Mild tricuspid regurgitation Mild pulmonary hypertension Compared to prior echocardiogram from 07/2023, LV systolic function appears to have improved slightly. Rich Jenkins MD (Electronically Signed) Final Date: 10 April 2024 14:30 S
== END 2024-04-03 08:13 | disposition home or self-care (01) ==
LOC: RAD 08:12
PROVIDERS: PCP Nurse Practitioner Family; Visit Provider Nurse Practitioner Family
DX: I50.20 Unspecified systolic (congestive) heart failure (principal)
CPT/HCPCS: 93306

== ENCOUNTER → 2024-05-06 08:12 | Outpatient (BNVA) | payer MEDICARE, MEDICAID, SELFPAY | PROVIDERS: PCP Nurse Practitioner Family; Visit Provider Nurse Practitioner Family | DX: I50.9 Heart failure, unspecified (principal) | CPT/HCPCS: 80048; 83880 ==

== ENCOUNTER → 2024-11-05 09:00 | Outpatient (BNVA) | payer MEDICARE, MEDICAID, SELFPAY | PROVIDERS: PCP Nurse Practitioner Family; Visit Provider Nurse Practitioner Family | DX: E11.9 Type 2 diabetes mellitus without complications (principal) | CPT/HCPCS: 80053; 80061; 82043; 83036 ==

== ENCOUNTER → 2025-01-05 13:43 | Outpatient (BNVA) | payer MEDICARE, MEDICAID, SELFPAY | PROVIDERS: PCP Nurse Practitioner Family; Visit Provider Internal Medicine Cardiovascular Disease | DX: I25.10 Atherosclerotic heart disease of native coronary artery without angina pectoris (principal); E11.9 Type 2 diabetes mellitus without complications; F10.90 Alcohol use, unspecified, uncomplicated; Z87.891 Personal history of nicotine dependence; Z79.84 Long term (current) use of oral hypoglycemic drugs | CPT/HCPCS: 99214 ==

== ENCOUNTER → 2025-03-11 11:00 | Outpatient (BNVA) | payer MEDICARE, MEDICAID, SELFPAY | PROVIDERS: PCP Nurse Practitioner Family; Visit Provider Nurse Practitioner Family | DX: N18.31 Chronic kidney disease, stage 3a (principal) | CPT/HCPCS: 80069 ==